=== PATIENT | female | born 1930 | race Caucasian/White ===

== ENCOUNTER 2020-10-19 12:38 | Observation (INO) | payer MEDICARE, OTHER ==
--- NOTE | 2020-10-19 13:07 | XRAY ---
Indication: Chest pain. Portable chest hyperinflated and clear. Heart borderline enlarged. Large hiatal hernia with partial intrathoracic stomach. Bony thorax demonstrates osteopenia, multilevel degenerative spondylosis, and moderate dextrorotoscoliosis.
[2020-10-19 13:26] LABS: Absolute Neutrophil Ct (ANC) 8.21 (1.4-6.9); BASOPHIL % 0.2 % (0.0-0.4); Basophil (Absolute #) 0.02 (0-0.4); Eosinophil % 0.1 % (0.00-5.0); Eosinophil (Absolute #) 0.01 (0-0.5); Hematocrit 40.3 % (35-47); Hemoglobin 13.2 gm/dl (12.0-16.0); Lymphocyte (Absolute #) 0.38 (1.0-4.6); Lymphocytes % 4.1 % (24.0-44.0); Mean Cell Volume 99.5 fl (78-100); Mean Corpuscular Hemoglobin 32.6 pg (26-32); Mean Corpuscular Hgb Concent. 32.8 g/dl (32-36); Mean Platelet Volume 8.7 fl (7.5-11.0); Monocyte (Absolute #) 0.76 (0.0-1.3); Monocytes % 8.1 % (0.0-12.0); Neutrophil % 87.5 % (36.0-66.0); Platelet Count 382 K/mm3 (150-450); Red Blood Count 4.05 M/mm3 (4.1-5.4); Red Cell Distribution Width 13.7 % (11.5-14.0); White Blood Count 9.4 K/mm3 (4.0-10.5)
[2020-10-19 13:40] LABS: ALBUMIN 3.5 g/dL (3.5-5.0); ALKALINE PHOSPHATASE 70 U/L (38-126); ANION GAP 11.6 MEQ/L (5-15); BLOOD UREA NITROGEN 17 mg/dL (7-17); CHLORIDE 101 mmol/L (98-107); Carbon Dioxide 27 mmol/L (22-30); Creatinine 1 0.62 mg/dL (0.52-1.04); EST GLOMERULAR FILTRATION RATE > 60.0 ML/MIN; Glucose 121 mg/dL (74-106); MAGNESIUM 1.9 mg/dL (1.6-2.3); NT PRO BNP 116 pg/mL (0-1800); Potassium 4.1 mmol/L (3.5-5.1); SGOT/AST 17 U/L (14-36); SODIUM 136 mmol/L (137-145); Total Protein 6.5 g/dL (6.3-8.2)
[2020-10-19 13:46] LABS: SGPT/ALT < 4 U/L (0-35)
[2020-10-19 14:25] LABS: Slide Review 1 YES
[2020-10-19 15:12] LABS: Appearance CLEAR (CLEAR); Bilirubin NEGATIVE (NEGATIVE); Blood SMALL Ery/ul (0-5); Glucose NEGATIVE (NEGATIVE); Ketones SMALL (NEGATIVE); Leukocyte Esterase NEGATIVE (NEGATIVE); Nitrite NEGATIVE (NEGATIVE); Protein,Urine Dip NEGATIVE (Negative); Specific Gravity 1.023 (1.005-1.025); Urobilinogen NEGATIVE mg/dL (0-1); WBC 0-2 /HPF (0-5)
--- NOTE | 2020-10-19 15:44 | ERPHSYRPT ---
- History of Present Illness Time Seen by Provider: 10/19/20 12:45 Historian: patient Exam Limitations: no limitations Patient Subjective Stated Complaint: "My chest hurts." Triage Nursing Assessment: Patient reported right sided neck pain onset friday that has since traveled to the right chest. Pain is reported at 10/10 and described as sharp. Denied known injuries. Denied alleviating/aggravating factors. Reported history of right breast cancer and right mastectomy. Patient appears cachectic. symmetrical chest expansion. heart tones S1/S2 tachycardic with regular rate. Lungs vessicular with adequate airflow and without adventitious sounds. Abdomen soft non-tedner. Peripheral pulses +3 bilateral. No noted dependent edema. Physician History: Patient is a 89-year-old female presents to our emergency department for evaluation of right-sided chest pain. Patient advised that she has a history of breast cancer. Patient chest pain started today. Pain described as a sharp sensation that radiates to her neck. No associated nausea or vomiting. No diaphoresis. Symptoms are moderate in intensity. No specific worsening or improving factors. Patient voices no other complaints or concerns at this time. Timing/Duration: today Activities at Onset: none Quality: sharpness Location: substernal Chest Pain Radiation: no radiation Severity of Pain-Max: moderate Severity of Pain-Current: mild Modifying Factors: Improves With: nothing Associated Symptoms: denies symptoms Prior Chest Pain/Cardiac Workup: no prior chest pain Nitro Today/Relief: no nitro taken today Aspirin Treatment Today: no aspirin today Allergies/Adverse Reactions: Penicillins Allergy (Verified 10/19/20 12:43) Sulfa (Sulfonamide Antibiotics) Allergy (Verified 10/19/20 12:43) Home Medications: Carbidopa/Levodopa [Carbidopa-Levo 25-100 Tab] 1 tab PO 5XD 10/19/20 [History] Quetiapine Fumarate 25 mg [Seroquel 25 MG] 1 tab PO HS 10/19/20 [History] Ropinirole 2Mg [Requip 2Mg Tab] 0.5 tab PO TID 10/19/20 [History] Tramadol HCl 50 mg [Ultram 50 mg] 1 tab PO Q6HPRN PRN 10/19/20 [History] Hx Tetanus, Diphtheria Vaccination/Date Given: Yes Hx Influenza Vaccination/Date Given: No Hx Pneumococcal Vaccination/Date Given: Yes Travel Risk - International Travel Have you traveled outside of the country in past 3 weeks: No - Coronavirus Screening Are you exhibiting any of the following symptoms?: No Close contact with a COVID-19 positive Pt in past 14-21 Days: No - Vaccine Status Have you recieved a Covid-19 vaccination: No - Review of Systems Constitutional: No Symptoms, No Fever, No Chills Eyes: No Symptoms Ears, Nose, & Throat: No Symptoms Respiratory: No Symptoms, No Cough, No Dyspnea Cardiac: No Symptoms, No Chest Pain, No Edema, No Syncope Abdominal/Gastrointestinal: No Symptoms, No Abdominal Pain, No Nausea, No Vomiting, No Diarrhea Genitourinary Symptoms: No Symptoms, No Dysuria Musculoskeletal: No Symptoms, No Back Pain, No Neck Pain Skin: No Symptoms, No Rash Neurological: No Symptoms, No Dizziness, No Focal Weakness, No Sensory Changes Psychological: No Symptoms Endocrine: No Symptoms Hematologic/Lymphatic: No Symptoms Immunological/Allergic: No Symptoms All Other Systems: Reviewed and Negative - Past Medical History Pertinent Past Medical History: Yes Neurological History: Other Female Reproductive Disorders: Breast Cancer Other Medical History: Parkinson's disease - Past Surgical History Past Surgical History: Yes Gastrointestinal: Cholecystectomy Female Surgical History: Tubal Ligation Other Surgical History: right mastectomy - Social History Smoking Status: Never smoker Exposure to second hand smoke: No Drug Use: none Patient Lives Alone: No - Nursing Vital Signs Nursing Vital Signs: Initial Vital Signs Pulse Rate 114 H 10/19/20 12:38 Respiratory Rate 24 10/19/20 12:38 O2 Sat by Pulse Oximetry 96 10/19/20 12:38 Pain Scale Pain Intensity 2 - Physical Exam General Appearance: no apparent distress, alert, thin, other (Patient is cachectic appearing) Eye Exam: PERRL/EOMI, eyes nml inspection Ears, Nose, Throat Exam: normal ENT inspection, moist mucous membranes Neck Exam: normal inspection, non-tender, supple, full range of motion Respiratory Exam: normal breath sounds, lungs clear, No respiratory distress Cardiovascular Exam: regular rate/rhythm, normal heart sounds Gastrointestinal/Abdomen Exam: soft, No tenderness, No mass Back Exam: normal inspection, No CVA tenderness, No vertebral tenderness Extremity Exam: normal inspection, normal range of motion Neurologic Exam: alert, oriented x 3, cooperative, normal mood/affect, sensation nml, No motor deficits Skin Exam: normal color, warm, dry Lymphatic Exam: No adenopathy SpO2 Interpretation: normal SpO2: 97 O2 Delivery: Room Air - Course Nursing assessment & vital signs reviewed: Yes EKG Interpreted by Me: RATE (112), Sinus Tach, NORMAL AXIS, NORMAL INTERVALS - Radiology Exams Chest X-ray Interpretation: Teleradiologist Report (Hyperinflated and clear lungs. Borderline cardiomegaly. Large hiatal hernia with partial intrathoracic stoma ch. Bony thorax demonstrates osteopenia multilevel degenerative spondylosis and moderate dextroscoliosis) - CT Exams Chest CT Interpretation: Tele-radiologist Report (Negative pulmonary embolus. No acute cardiopulmonary abnormalities. Pulmonary emphysema and scattered atelectasis/scarring, borderline cardiomegaly hiatal hernia with partial intrathoracic stomach, chronic bony findings and old granulomatous disease) Ordered Tests: Active Orders 24 hr Category Date Time Status Scene Painter STAT Care 10/19/20 12:48 Active EKG-ER Only STAT Care 10/19/20 12:47 Active IV Insertion STAT Care 10/19/20 12:47 Active Pulse Oximetry (ED) STAT Care 10/19/20 12:47 Active CHEST 1 VIEW (PORTABLE) Stat Exams 10/19/20 12:48 Completed CHEST WITH CONTRAST [CT] Stat Exams 10/19/20 15:43 Completed BLOOD CULTURE Stat Lab 10/19/20 13:10 Received CBC W DIFF Stat Lab 10/19/20 13:05 Completed CMP Stat Lab 10/19/20 13:05 Completed MAGNESIUM Stat Lab 10/19/20 13:05 Completed NT PRO BNP Stat Lab 10/19/20 13:05 Completed TROPONIN Q3H Lab 10/19/20 13:05 Completed TROPONIN Q3H Lab 10/19/20 15:40 Completed TROPONIN Q3H Lab 10/19/20 19:10 Completed TROPONIN Q3H Lab 10/19/20 22:00 Ordered TROPONIN Q3H Lab 10/20/20 01:00 Ordered UA W/RFX UR CULTURE Stat Lab 10/19/20 12:48 Completed Transfer Order Routine Transfer 10/19/20 Ordered Medication Summary Discontinued Medications Generic Name Dose Route Start Last Admin Trade Name Freq PRN Reason Stop Dose Admin Aspirin 324 mg 10/19/20 20:22 Baby Aspirin 81 Mg Chew PO 10/19/20 20:23 STAT ONE Morphine Sulfate 2 mg 10/19/20 15:51 10/19/20 16:04 Morphine Sulfate 2 Mg Inj IV 10/19/20 15:52 2 mg STAT ONE Administration Morphine Sulfate Confirm 10/19/20 16:02 Morphine Sulfate 2 Mg Inj Administered 10/19/20 16:03 Dose 2 mg .ROUTE .STK-MED ONE Nitroglycerin 1 gm 10/19/20 20:23 Nitro-Bid 2% Ud Packets TOP 10/19/20 20:24 STAT ONE Lab/Rad Data: Laboratory Result Diagrams 10/19/20 13:05 10/19/20 13:05 Laboratory Results 10/19/20 10/19/20 10/19/20 Range/Units 19:10 18:45 15:40 WBC (4.0-10.5) K/mm3 RBC (4.1-5.4) M/mm3 Hgb (12.0-16.0) gm/dl Hct (35-47) % MCV (78-100) fl MCH (26-32) pg MCHC (32-36) g/dl RDW (11.5-14.0) % Plt Count (150-450) K/mm3 MPV (7.5-11.0) fl Gran % (36.0-66.0) % Eos # (Auto) (0-0.5) Absolute Lymphs (auto) (1.0-4.6) Absolute Monos (auto) (0.0-1.3) Lymphocytes % (24.0-44.0) % Monocytes % (0.0-12.0) % Eosinophils % (0.00-5.0) % Basophils % (0.0-0.4) % Absolute Granulocytes (1.4-6.9) Basophils # (0-0.4) Sodium (137-145) mmol/L Potassium (3.5-5.1) mmol/L Chloride (98-107) mmol/L Carbon Dioxide (22-30) mmol/L Anion Gap (5-15) MEQ/L BUN (7-17) mg/dL Creatinine (0.52-1.04) mg/dL Estimated GFR ML/MIN Glucose (74-106) mg/dL Calcium (8.4-10.2) mg/dL Magnesium (1.6-2.3) mg/dL Total Bilirubin (0.2-1.3) mg/dL AST (14-36) U/L ALT (0-35) U/L Alkaline Phosphatase (38-126) U/L Troponin I < 0.012 < 0.012 (0.000-0.034) ng/mL NT-Pro-B Natriuret Pep (0-1800) pg/mL Serum Total Protein (6.3-8.2) g/dL Albumin (3.5-5.0) g/dL Urine Color (YELLOW) Urine Appearance (CLEAR) Urine pH (5-6) Ur Specific [place] (1.005-1.025) Urine Protein (Negative) Urine Ketones (NEGATIVE) Urine Blood (0-5) Luis/ul Urine Nitrite (NEGATIVE) Urine Bilirubin (NEGATIVE) Urine Urobilinogen (0-1) mg/dL Ur Leukocyte Esterase (NEGATIVE) Urine WBC (Auto) (0-5) /HPF Urine RBC (Auto) (0-2) /HPF U Epithel Cells (Auto) (FEW) /HPF Urine Bacteria (Auto) (NEGATIVE) /HPF Urine Culture Reflexed (NO) Urine Glucose (NEGATIVE) mg/dL Influenza Type A Ag NEGATIVE (NEGATIVE) Influenza Type B Ag NEGATIVE (NEGATIVE) RSV (PCR) NEGATIVE (Negative) SARS-CoV-2 (PCR) NEGATIVE (NEGATIVE) Slides for Path Review 10/19/20 10/19/20 10/19/20 Range/Units 13:05 13:05 13:05 WBC 9.4 (4.0-10.5) K/mm3 RBC 4.05 L (4.1-5.4) M/mm3 Hgb 13.2 (12.0-16.0) gm/dl Hct 40.3 (35-47) % MCV 99.5 (78-100) fl MCH 32.6 H (26-32) pg MCHC 32.8 (32-36) g/dl RDW 13.7 (11.5-14.0) % Plt Count 382 (150-450) K/mm3 MPV 8.7 (7.5-11.0) fl Gran % 87.5 H (36.0-66.0) % Eos # (Auto) 0.01 (0-0.5) Absolute Lymphs (auto) 0.38 L (1.0-4.6) Absolute Monos (auto) 0.76 (0.0-1.3) Lymphocytes % 4.1 L (24.0-44.0) % Monocytes % 8.1 (0.0-12.0) % Eosinophils % 0.1 (0.00-5.0) % Basophils % 0.2 (0.0-0.4) % Absolute Granulocytes 8.21 H (1.4-6.9) Basophils # 0.02 (0-0.4) Sodium 136 L (137-145) mmol/L Potassium 4.1 (3.5-5.1) mmol/L Chloride 101 (98-107) mmol/L Carbon Dioxide 27 (22-30) mmol/L Anion Gap 11.6 (5-15) MEQ/L BUN 17 (7-17) mg/dL Creatinine 0.62 (0.52-1.04) mg/dL Estimated GFR > 60.0 ML/MIN Glucose 121 H (74-106) mg/dL Calcium 9.0 (8.4-10.2) mg/dL Magnesium 1.9 (1.6-2.3) mg/dL Total Bilirubin 0.80 (0.2-1.3) mg/dL AST 17 (14-36) U/L ALT < 4 (0-35) U/L Alkaline Phosphatase 70 (38-126) U/L Troponin I < 0.012 (0.000-0.034) ng/mL NT-Pro-B Natriuret Pep 116 (0-1800) pg/mL Serum Total Protein 6.5 (6.3-8.2) g/dL Albumin 3.5 (3.5-5.0) g/dL Urine Color (YELLOW) Urine Appearance (CLEAR) Urine pH (5-6) Ur Specific [place] (1.005-1.025) Urine Protein (Negative) Urine Ketones (NEGATIVE) Urine Blood (0-5) Luis/ul Urine Nitrite (NEGATIVE) Urine Bilirubin (NEGATIVE) Urine Urobilinogen (0-1) mg/dL Ur Leukocyte Esterase (NEGATIVE) Urine WBC (Auto) (0-5) /HPF Urine RBC (Auto) (0-2) /HPF U Epithel Cells (Auto) (FEW) /HPF Urine Bacteria (Auto) (NEGATIVE) /HPF Urine Culture Reflexed (NO) Urine Glucose (NEGATIVE) mg/dL Influenza Type A Ag (NEGATIVE) Influenza Type B Ag (NEGATIVE) RSV (PCR) (Negative) SARS-CoV-2 (PCR) (NEGATIVE) Slides for Path Review YES 10/19/20 Range/Units 12:48 WBC (4.0-10.5) K/mm3 RBC (4.1-5.4) M/mm3 Hgb (12.0-16.0) gm/dl Hct (35-47) % MCV (78-100) fl MCH (26-32) pg MCHC (32-36) g/dl RDW (11.5-14.0) % Plt Count (150-450) K/mm3 MPV (7.5-11.0) fl Gran % (36.0-66.0) % Eos # (Auto) (0-0.5) Absolute Lymphs (auto) (1.0-4.6) Absolute Monos (auto) (0.0-1.3) Lymphocytes % (24.0-44.0) % Monocytes % (0.0-12.0) % Eosinophils % (0.00-5.0) % Basophils % (0.0-0.4) % Absolute Granulocytes (1.4-6.9) Basophils # (0-0.4) Sodium (137-145) mmol/L Potassium (3.5-5.1) mmol/L Chloride (98-107) mmol/L Carbon Dioxide (22-30) mmol/L Anion Gap (5-15) MEQ/L BUN (7-17) mg/dL Creatinine (0.52-1.04) mg/dL Estimated GFR ML/MIN Glucose (74-106) mg/dL Calcium (8.4-10.2) mg/dL Magnesium (1.6-2.3) mg/dL Total Bilirubin (0.2-1.3) mg/dL AST (14-36) U/L ALT (0-35) U/L Alkaline Phosphatase (38-126) U/L Troponin I (0.000-0.034) ng/mL NT-Pro-B Natriuret Pep (0-1800) pg/mL Serum Total Protein (6.3-8.2) g/dL Albumin (3.5-5.0) g/dL Urine Color YELLOW (YELLOW) Urine Appearance CLEAR (CLEAR) Urine pH 5.0 (5-6) Ur Specific [place] 1.023 (1.005-1.025) Urine Protein NEGATIVE (Negative) Urine Ketones SMALL (NEGATIVE) Urine Blood SMALL (0-5) Luis/ul Urine Nitrite NEGATIVE (NEGATIVE) Urine Bilirubin NEGATIVE (NEGATIVE) Urine Urobilinogen NEGATIVE (0-1) mg/dL Ur Leukocyte Esterase NEGATIVE (NEGATIVE) Urine WBC (Auto) 0-2 (0-5) /HPF Urine RBC (Auto) 3-5 (0-2) /HPF U Epithel Cells (Auto) NONE (FEW) /HPF Urine Bacteria (Auto) NONE (NEGATIVE) /HPF Urine Culture Reflexed NO (NO) Urine Glucose NEGATIVE (NEGATIVE) mg/dL Influenza Type A Ag (NEGATIVE) Influenza Type B Ag (NEGATIVE) RSV (PCR) (Negative) SARS-CoV-2 (PCR) (NEGATIVE) Slides for Path Review - Progress Progress: improved Air Movement: good Progress Note: 10/19/20 20:26 Patient is an 89-year-old female presents with chest pain. CTA chest negative. Troponin negative x2. We will admit for cardiac rule out. Case cussed Dr. Patel who accepts admission to observation. Plan of care discussed with patient. She agrees to admission [facility] for further evaluation and treatment. Blood Culture(s) Obtained: No Antibiotics given: No Counseled pt/family regarding: lab results, diagnosis, rad results - Departure Departure Disposition: Home Clinical Impression: Chest pain, Hiatal hernia, Osteopenia, Spondylosis, Dextroscoliosis, Cardiomegaly, Pulmonary emphysema, Granulomatous disease, chronic, Degenerative arthritis, Acute coronary syndrome Condition: Stable Critical Care Time: No Referrals: YULI SEWELL NP [Primary Care Provider] - Instructions: Chronic Obstructive Pulmonary Disease
[2020-10-19] MEDS ORDERED: MORPHINE SULFATE 2 MG INJ IV ONE (15:51)
[2020-10-19] MEDS ORDERED: MORPHINE SULFATE 2 MG INJ ONE (16:02)
--- NOTE | 2020-10-19 17:06 | XRAY ---
Indication: Pulmonary embolus. Multiple contiguous axial images obtained through the chest using 80 cc Isovue 370 contrast and PE protocol. Comparison: None There is good opacification of the pulmonary arteries to include the lobar and segmental branches. No pulmonary embolus. Heart is borderline enlarged. Aorta is mildly arteriosclerotic without aneurysm/dissection. Tiny mediastinal and hilar calcified nodes. No pathologic mediastinal/hilar lymphadenopathy. Large hiatal hernia with partial intrathoracic stomach. Lungs demonstrates mild pulmonary emphysema with mild bibasilar subsegmental atelectasis/scarring, left greater than right. No suspicious pulmonary mass, infiltrate, or effusion. Bony thorax demonstrates osteopenia, minimal degenerative changes throughout the spine, accentuated thoracic kyphosis, and mild dextroscoliosis. Limited upper abdomen demonstrates hepatic/splenic calcified granulomas. Impression: 1. Negative pulmonary embolus. No acute cardiopulmonary abnormalities. 2. Pulmonary emphysema with scattered atelectasis/scarring, borderline cardiomegaly, hiatal hernia with partial intrathoracic stomach, chronic bony findings, and old granulomatous disease.
[2020-10-19 19:52] LABS: INFLUENZA A NEGATIVE (NEGATIVE); INFLUENZA B NEGATIVE (NEGATIVE); RESPIRATORY SYNCTIAL VIRUS NEGATIVE (Negative)
[2020-10-19] MEDS ORDERED: BABY ASPIRIN 81 MG CHEW PO ONE (20:22)
[2020-10-19] MEDS ORDERED: NITRO-BID 2% UD PACKETS TOP ONE (20:23)
[2020-10-19] MEDS ORDERED: NITRO-BID 2% UD PACKETS ONE (20:26)
[2020-10-19] MEDS ORDERED: BABY ASPIRIN 81 MG CHEW ONE (20:26)
[2020-10-19] MEDS ORDERED: MILK OF MAGNESIA 30 ML PO PRN (21:02)
[2020-10-19] MEDS ORDERED: Senokot-S Tablet PO PRN (21:02)
[2020-10-19] MEDS ORDERED: MAALOX ES 30 ML UNIT DOSE PO PRN (21:02)
[2020-10-19] MEDS ORDERED: TYLENOL 325 MG PO PRN (21:02)
[2020-10-19] MEDS ORDERED: Zofran 4 MG/2 ML VIAL IV PRN (21:02)
[2020-10-19] MEDS ORDERED: Seroquel 25 MG PO SCH (22:00)
[2020-10-19] MEDS ORDERED: ULTRAM 50 MG PO PRN (22:42)
[2020-10-19] MEDS: REQUIP 2MG TAB PO SCH (22:57)
[2020-10-19] MEDS: Sinemet 25/100 MG PO SCH (22:58)
[2020-10-20] MEDS: Sinemet 25/100 MG PO SCH ×2 (02:00→06:42)
[2020-10-20 06:43] LABS: Risk Ratio 2.6
[2020-10-20 08:28] VITALS: BP 112/57; PULSE 96; O2SAT 97
--- NOTE | 2020-10-20 09:31 | PCM.SSS ---
History of Present Illness - Chief Complaint Chief Complaint: ACS Date: 10/20/20 History of Present Illness: is a 89 year old female. Pt. noted right chest pain where her boob had previously been, she notes pain resolved after MOrphine was given in ER. - Review of Systems Constitutional: No Fever, No Chills Eyes: No Symptoms Ears, Nose, & Throat: No Symptoms Respiratory: No Cough, No Short Of Breath Cardiac: Chest Pain Abdominal/Gastrointestinal: No Abdominal Pain, No Nausea, No Vomiting, No Diarrhea Genitourinary Symptoms: No Dysuria Musculoskeletal: No Back Pain, No Neck Pain Skin: No Rash Neurological: No Dizziness, No Focal Weakness, No Sensory Changes Psychological: No Symptoms Endocrine: No Symptoms Hematologic/Lymphatic: No Symptoms Immunological/Allergic: No Symptoms Medications & Allergies Home Medications: Home Medication List Carbidopa/Levodopa [Carbidopa-Levo 25-100 Tab] 1 tab PO 5XD 10/19/20 [History Confirmed 10/19/20] Quetiapine Fumarate 25 mg [Seroquel 25 MG] 1 tab PO HS 10/19/20 [History Confirmed 10/19/20] Ropinirole 2Mg [Requip 2Mg Tab] 0.5 tab PO TID 10/19/20 [History Confirmed 10/19/20] Tramadol HCl 50 mg [Ultram 50 mg] 1 tab PO Q6HPRN PRN 10/19/20 [History Confirmed 10/19/20] Allergies/Adverse Reactions: Allergies Allergy/AdvReac Type Severity Reaction Status Date / Time Penicillins Allergy Verified 10/19/20 21:20 Sulfa (Sulfonamide Allergy Verified 10/19/20 21:20 Antibiotics) - Past Medical History Past Medical History: Yes Neurological History: Other ENT History: Cataracts Cardiac History: No Pertinent History Respiratory History: No Pertinent History Endocrine Medical History: No Pertinent History Musculoskelatal History: No Pertinent History GI Medical History: No Pertinent History Pyscho-Social History: No Pertinent History Reproductive Disorders: Breast Cancer Comment: Parkinson's disease, 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 no other history reported by pt, poor historian - Social History Smoking Status: Former smoker Exposure to second hand smoke: No Alcohol: None Drug Use: none - Physical Exam Vital Signs: Vital Signs - 24 hr Temp Pulse Resp BP Pulse Ox 10/20/20 08:00 98.6 F 96 H 14 112/57 97 10/20/20 04:15 98.8 F 101 H 17 121/56 96 10/20/20 00:00 98.7 F 96 H 18 119/65 95 10/19/20 23:09 98.9 F 103 H 17 144/65 94 L 10/19/20 22:05 95 10/19/20 20:28 97 10/19/20 19:00 103 H 16 135/62 96 10/19/20 18:28 114 H 20 125/68 98 10/19/20 17:00 113 H 22 125/68 95 10/19/20 16:00 110 H 18 125/68 95 10/19/20 14:38 117 H 24 127/54 97 10/19/20 12:58 96 10/19/20 12:38 114 H 24 96 General Appearance: no apparent distress, alert Neurologic Exam: alert, oriented x 3, cooperative, normal mood/affect, nml cerebellar function, nml station & gait, sensation nml, No motor deficits Eye Exam: PERRL/EOMI, eyes nml inspection Ears, Nose, Throat Exam: normal ENT inspection, TMs normal, pharynx normal, moist mucous membranes Neck Exam: normal inspection, non-tender, supple, full range of motion Respiratory Exam: normal breath sounds, lungs clear, No respiratory distress Cardiovascular Exam: regular rate/rhythm, normal heart sounds, normal peripheral pulses Gastrointestinal/Abdomen Exam: soft, normal bowel sounds, No tenderness, No mass Back Exam: normal inspection, normal range of motion, No CVA tenderness, No vertebral tenderness Extremity Exam: normal inspection, normal range of motion, pelvis stable Skin Exam: normal color, warm, dry, No rash Lymphatic Exam: No adenopathy Results - Labs Lab/Micro Results: Lab Results-Last 24 Hours 10/19/20 10/19/20 10/19/20 Range/Units 12:48 13:05 13:05 WBC 9.4 (4.0-10.5) K/mm3 RBC 4.05 L (4.1-5.4) M/mm3 Hgb 13.2 (12.0-16.0) gm/dl Hct 40.3 (35-47) % MCV 99.5 (78-100) fl MCH 32.6 H (26-32) pg MCHC 32.8 (32-36) g/dl RDW 13.7 (11.5-14.0) % Plt Count 382 (150-450) K/mm3 MPV 8.7 (7.5-11.0) fl Gran % 87.5 H (36.0-66.0) % Eos # (Auto) 0.01 (0-0.5) Absolute Lymphs (auto) 0.38 L (1.0-4.6) Absolute Monos (auto) 0.76 (0.0-1.3) Lymphocytes % 4.1 L (24.0-44.0) % Monocytes % 8.1 (0.0-12.0) % Eosinophils % 0.1 (0.00-5.0) % Basophils % 0.2 (0.0-0.4) % Absolute Granulocytes 8.21 H (1.4-6.9) Basophils # 0.02 (0-0.4) Sodium 136 L (137-145) mmol/L Potassium 4.1 (3.5-5.1) mmol/L Chloride 101 (98-107) mmol/L Carbon Dioxide 27 (22-30) mmol/L Anion Gap 11.6 (5-15) MEQ/L BUN 17 (7-17) mg/dL Creatinine 0.62 (0.52-1.04) mg/dL Estimated GFR > 60.0 ML/MIN Glucose 121 H (74-106) mg/dL Calcium 9.0 (8.4-10.2) mg/dL Magnesium 1.9 (1.6-2.3) mg/dL Total Bilirubin 0.80 (0.2-1.3) mg/dL AST 17 (14-36) U/L ALT < 4 (0-35) U/L Alkaline Phosphatase 70 (38-126) U/L Troponin I (0.000-0.034) ng/mL NT-Pro-B Natriuret Pep 116 (0-1800) pg/mL Serum Total Protein 6.5 (6.3-8.2) g/dL Albumin 3.5 (3.5-5.0) g/dL Triglycerides (30-150) mg/dL Cholesterol (50-200) mg/dL LDL Cholesterol (30-100) mg/dL HDL Cholesterol (40-60) mg/dL Heart Disease Risk Ratio Urine Color YELLOW (YELLOW) Urine Appearance CLEAR (CLEAR) Urine pH 5.0 (5-6) Ur Specific [place] 1.023 (1.005-1.025) Urine Protein NEGATIVE (Negative) Urine Ketones SMALL (NEGATIVE) Urine Blood SMALL (0-5) Luis/ul Urine Nitrite NEGATIVE (NEGATIVE) Urine Bilirubin NEGATIVE (NEGATIVE) Urine Urobilinogen NEGATIVE (0-1) mg/dL Ur Leukocyte Esterase NEGATIVE (NEGATIVE) Urine WBC (Auto) 0-2 (0-5) /HPF Urine RBC (Auto) 3-5 (0-2) /HPF U Epithel Cells (Auto) NONE (FEW) /HPF Urine Bacteria (Auto) NONE (NEGATIVE) /HPF Urine Culture Reflexed NO (NO) Urine Glucose NEGATIVE (NEGATIVE) mg/dL Influenza Type A Ag (NEGATIVE) Influenza Type B Ag (NEGATIVE) RSV (PCR) (Negative) SARS-CoV-2 (PCR) (NEGATIVE) Slides for Path Review YES 10/19/20 10/19/20 10/19/20 Range/Units 13:05 15:40 18:45 WBC (4.0-10.5) K/mm3 RBC (4.1-5.4) M/mm3 Hgb (12.0-16.0) gm/dl Hct (35-47) % MCV (78-100) fl MCH (26-32) pg MCHC (32-36) g/dl RDW (11.5-14.0) % Plt Count (150-450) K/mm3 MPV (7.5-11.0) fl Gran % (36.0-66.0) % Eos # (Auto) (0-0.5) Absolute Lymphs (auto) (1.0-4.6) Absolute Monos (auto) (0.0-1.3) Lymphocytes % (24.0-44.0) % Monocytes % (0.0-12.0) % Eosinophils % (0.00-5.0) % Basophils % (0.0-0.4) % Absolute Granulocytes (1.4-6.9) Basophils # (0-0.4) Sodium (137-145) mmol/L Potassium (3.5-5.1) mmol/L Chloride (98-107) mmol/L Carbon Dioxide (22-30) mmol/L Anion Gap (5-15) MEQ/L BUN (7-17) mg/dL Creatinine (0.52-1.04) mg/dL Estimated GFR ML/MIN Glucose (74-106) mg/dL Calcium (8.4-10.2) mg/dL Magnesium (1.6-2.3) mg/dL Total Bilirubin (0.2-1.3) mg/dL AST (14-36) U/L ALT (0-35) U/L Alkaline Phosphatase (38-126) U/L Troponin I < 0.012 < 0.012 (0.000-0.034) ng/mL NT-Pro-B Natriuret Pep (0-1800) pg/mL Serum Total Protein (6.3-8.2) g/dL Albumin (3.5-5.0) g/dL Triglycerides (30-150) mg/dL Cholesterol (50-200) mg/dL LDL Cholesterol (30-100) mg/dL HDL Cholesterol (40-60) mg/dL Heart Disease Risk Ratio Urine Color (YELLOW) Urine Appearance (CLEAR) Urine pH (5-6) Ur Specific [place] (1.005-1.025) Urine Protein (Negative) Urine Ketones (NEGATIVE) Urine Blood (0-5) Luis/ul Urine Nitrite (NEGATIVE) Urine Bilirubin (NEGATIVE) Urine Urobilinogen (0-1) mg/dL Ur Leukocyte Esterase (NEGATIVE) Urine WBC (Auto) (0-5) /HPF Urine RBC (Auto) (0-2) /HPF U Epithel Cells (Auto) (FEW) /HPF Urine Bacteria (Auto) (NEGATIVE) /HPF Urine Culture Reflexed (NO) Urine Glucose (NEGATIVE) mg/dL Influenza Type A Ag NEGATIVE (NEGATIVE) Influenza Type B Ag NEGATIVE (NEGATIVE) RSV (PCR) NEGATIVE (Negative) SARS-CoV-2 (PCR) NEGATIVE (NEGATIVE) Slides for Path Review 10/19/20 10/19/20 10/20/20 Range/Units 19:10 22:00 00:50 WBC (4.0-10.5) K/mm3 RBC (4.1-5.4) M/mm3 Hgb (12.0-16.0) gm/dl Hct (35-47) % MCV (78-100) fl MCH (26-32) pg MCHC (32-36) g/dl RDW (11.5-14.0) % Plt Count (150-450) K/mm3 MPV (7.5-11.0) fl Gran % (36.0-66.0) % Eos # (Auto) (0-0.5) Absolute Lymphs (auto) (1.0-4.6) Absolute Monos (auto) (0.0-1.3) Lymphocytes % (24.0-44.0) % Monocytes % (0.0-12.0) % Eosinophils % (0.00-5.0) % Basophils % (0.0-0.4) % Absolute Granulocytes (1.4-6.9) Basophils # (0-0.4) Sodium (137-145) mmol/L Potassium (3.5-5.1) mmol/L Chloride (98-107) mmol/L Carbon Dioxide (22-30) mmol/L Anion Gap (5-15) MEQ/L BUN (7-17) mg/dL Creatinine (0.52-1.04) mg/dL Estimated GFR ML/MIN Glucose (74-106) mg/dL Calcium (8.4-10.2) mg/dL Magnesium (1.6-2.3) mg/dL Total Bilirubin (0.2-1.3) mg/dL AST (14-36) U/L ALT (0-35) U/L Alkaline Phosphatase (38-126) U/L Troponin I < 0.012 < 0.012 < 0.012 (0.000-0.034) ng/mL NT-Pro-B Natriuret Pep (0-1800) pg/mL Serum Total Protein (6.3-8.2) g/dL Albumin (3.5-5.0) g/dL Triglycerides (30-150) mg/dL Cholesterol (50-200) mg/dL LDL Cholesterol (30-100) mg/dL HDL Cholesterol (40-60) mg/dL Heart Disease Risk Ratio Urine Color (YELLOW) Urine Appearance (CLEAR) Urine pH (5-6) Ur Specific [place] (1.005-1.025) Urine Protein (Negative) Urine Ketones (NEGATIVE) Urine Blood (0-5) Luis/ul Urine Nitrite (NEGATIVE) Urine Bilirubin (NEGATIVE) Urine Urobilinogen (0-1) mg/dL Ur Leukocyte Esterase (NEGATIVE) Urine WBC (Auto) (0-5) /HPF Urine RBC (Auto) (0-2) /HPF U Epithel Cells (Auto) (FEW) /HPF Urine Bacteria (Auto) (NEGATIVE) /HPF Urine Culture Reflexed (NO) Urine Glucose (NEGATIVE) mg/dL Influenza Type A Ag (NEGATIVE) Influenza Type B Ag (NEGATIVE) RSV (PCR) (Negative) SARS-CoV-2 (PCR) (NEGATIVE) Slides for Path Review 10/20/20 Range/Units 04:00 WBC (4.0-10.5) K/mm3 RBC (4.1-5.4) M/mm3 Hgb (12.0-16.0) gm/dl Hct (35-47) % MCV (78-100) fl MCH (26-32) pg MCHC (32-36) g/dl RDW (11.5-14.0) % Plt Count (150-450) K/mm3 MPV (7.5-11.0) fl Gran % (36.0-66.0) % Eos # (Auto) (0-0.5) Absolute Lymphs (auto) (1.0-4.6) Absolute Monos (auto) (0.0-1.3) Lymphocytes % (24.0-44.0) % Monocytes % (0.0-12.0) % Eosinophils % (0.00-5.0) % Basophils % (0.0-0.4) % Absolute Granulocytes (1.4-6.9) Basophils # (0-0.4) Sodium (137-145) mmol/L Potassium (3.5-5.1) mmol/L Chloride (98-107) mmol/L Carbon Dioxide (22-30) mmol/L Anion Gap (5-15) MEQ/L BUN (7-17) mg/dL Creatinine (0.52-1.04) mg/dL Estimated GFR ML/MIN Glucose (74-106) mg/dL Calcium (8.4-10.2) mg/dL Magnesium (1.6-2.3) mg/dL Total Bilirubin (0.2-1.3) mg/dL AST (14-36) U/L ALT (0-35) U/L Alkaline Phosphatase (38-126) U/L Troponin I (0.000-0.034) ng/mL NT-Pro-B Natriuret Pep (0-1800) pg/mL Serum Total Protein (6.3-8.2) g/dL Albumin (3.5-5.0) g/dL Triglycerides 64 (30-150) mg/dL Cholesterol 112 (50-200) mg/dL LDL Cholesterol 46 (30-100) mg/dL HDL Cholesterol 43 (40-60) mg/dL Heart Disease Risk Ratio 2.6 Urine Color (YELLOW) Urine Appearance (CLEAR) Urine pH (5-6) Ur Specific [place] (1.005-1.025) Urine Protein (Negative) Urine Ketones (NEGATIVE) Urine Blood (0-5) Luis/ul Urine Nitrite (NEGATIVE) Urine Bilirubin (NEGATIVE) Urine Urobilinogen (0-1) mg/dL Ur Leukocyte Esterase (NEGATIVE) Urine WBC (Auto) (0-5) /HPF Urine RBC (Auto) (0-2) /HPF U Epithel Cells (Auto) (FEW) /HPF Urine Bacteria (Auto) (NEGATIVE) /HPF Urine Culture Reflexed (NO) Urine Glucose (NEGATIVE) mg/dL Influenza Type A Ag (NEGATIVE) Influenza Type B Ag (NEGATIVE) RSV (PCR) (Negative) SARS-CoV-2 (PCR) (NEGATIVE) Slides for Path Review - Radiology Impressions Radiology Exams & Impressions: Radiology Procedures Category Date Time Status CHEST 1 VIEW (PORTABLE) Stat Exams 10/19/20 12:48 Completed CHEST WITH CONTRAST [CT] Stat Exams 10/19/20 15:43 Completed - Other Procedures and Tests Respiratory Therapy 10/21/20 05:00 EKG ROUTINE 10/22/20 05:00 EKG ROUTINE Assessment/Plan (1) Chest pain Current Visit: Yes Status: Acute Code(s): R07.9 - CHEST PAIN, UNSPECIFIED Hospital Summary - Hospital Course Hospital Course: Pt. notes no further chest pain/ tenderness after initial dose of morphine given in ER, she feels ready for d/c this am - Vitals & Intake/Output Vital Signs: Vital Signs Temperature 98.6 F 10/20/20 08:00 Pulse Rate 96 H 10/20/20 08:00 Respiratory Rate 14 10/20/20 08:00 Blood Pressure 112/57 10/20/20 08:00 O2 Sat by Pulse Oximetry 97 10/20/20 08:00 Intake & Output: Intake & Output 10/17/20 10/18/20 10/19/20 10/20/20 11:59 11:59 11:59 11:59 Intake Total 240 Output Total 10 Balance 230 Weight 41.4 kg - Lab Result Diagrams: 10/19/20 13:05 10/19/20 13:05 Lab Results-Last 24 Hrs: Lab Results-Last 24 Hours 10/19/20 10/19/20 10/19/20 Range/Units 12:48 13:05 13:05 WBC 9.4 (4.0-10.5) K/mm3 RBC 4.05 L (4.1-5.4) M/mm3 Hgb 13.2 (12.0-16.0) gm/dl Hct 40.3 (35-47) % MCV 99.5 (78-100) fl MCH 32.6 H (26-32) pg MCHC 32.8 (32-36) g/dl RDW 13.7 (11.5-14.0) % Plt Count 382 (150-450) K/mm3 MPV 8.7 (7.5-11.0) fl Gran % 87.5 H (36.0-66.0) % Eos # (Auto) 0.01 (0-0.5) Absolute Lymphs (auto) 0.38 L (1.0-4.6) Absolute Monos (auto) 0.76 (0.0-1.3) Lymphocytes % 4.1 L (24.0-44.0) % Monocytes % 8.1 (0.0-12.0) % Eosinophils % 0.1 (0.00-5.0) % Basophils % 0.2 (0.0-0.4) % Absolute Granulocytes 8.21 H (1.4-6.9) Basophils # 0.02 (0-0.4) Sodium 136 L (137-145) mmol/L Potassium 4.1 (3.5-5.1) mmol/L Chloride 101 (98-107) mmol/L Carbon Dioxide 27 (22-30) mmol/L Anion Gap 11.6 (5-15) MEQ/L BUN 17 (7-17) mg/dL Creatinine 0.62 (0.52-1.04) mg/dL Estimated GFR > 60.0 ML/MIN Glucose 121 H (74-106) mg/dL Calcium 9.0 (8.4-10.2) mg/dL Magnesium 1.9 (1.6-2.3) mg/dL Total Bilirubin 0.80 (0.2-1.3) mg/dL AST 17 (14-36) U/L ALT < 4 (0-35) U/L Alkaline Phosphatase 70 (38-126) U/L Troponin I (0.000-0.034) ng/mL NT-Pro-B Natriuret Pep 116 (0-1800) pg/mL Serum Total Protein 6.5 (6.3-8.2) g/dL Albumin 3.5 (3.5-5.0) g/dL Triglycerides (30-150) mg/dL Cholesterol (50-200) mg/dL LDL Cholesterol (30-100) mg/dL HDL Cholesterol (40-60) mg/dL Heart Disease Risk Ratio Urine Color YELLOW (YELLOW) Urine Appearance CLEAR (CLEAR) Urine pH 5.0 (5-6) Ur Specific [place] 1.023 (1.005-1.025) Urine Protein NEGATIVE (Negative) Urine Ketones SMALL (NEGATIVE) Urine Blood SMALL (0-5) Luis/ul Urine Nitrite NEGATIVE (NEGATIVE) Urine Bilirubin NEGATIVE (NEGATIVE) Urine Urobilinogen NEGATIVE (0-1) mg/dL Ur Leukocyte Esterase NEGATIVE (NEGATIVE) Urine WBC (Auto) 0-2 (0-5) /HPF Urine RBC (Auto) 3-5 (0-2) /HPF U Epithel Cells (Auto) NONE (FEW) /HPF Urine Bacteria (Auto) NONE (NEGATIVE) /HPF Urine Culture Reflexed NO (NO) Urine Glucose NEGATIVE (NEGATIVE) mg/dL Influenza Type A Ag (NEGATIVE) Influenza Type B Ag (NEGATIVE) RSV (PCR) (Negative) SARS-CoV-2 (PCR) (NEGATIVE) Slides for Path Review YES 10/19/20 10/19/20 10/19/20 Range/Units 13:05 15:40 18:45 WBC (4.0-10.5) K/mm3 RBC (4.1-5.4) M/mm3 Hgb (12.0-16.0) gm/dl Hct (35-47) % MCV (78-100) fl MCH (26-32) pg MCHC (32-36) g/dl RDW (11.5-14.0) % Plt Count (150-450) K/mm3 MPV (7.5-11.0) fl Gran % (36.0-66.0) % Eos # (Auto) (0-0.5) Absolute Lymphs (auto) (1.0-4.6) Absolute Monos (auto) (0.0-1.3) Lymphocytes % (24.0-44.0) % Monocytes % (0.0-12.0) % Eosinophils % (0.00-5.0) % Basophils % (0.0-0.4) % Absolute Granulocytes (1.4-6.9) Basophils # (0-0.4) Sodium (137-145) mmol/L Potassium (3.5-5.1) mmol/L Chloride (98-107) mmol/L Carbon Dioxide (22-30) mmol/L Anion Gap (5-15) MEQ/L BUN (7-17) mg/dL Creatinine (0.52-1.04) mg/dL Estimated GFR ML/MIN Glucose (74-106) mg/dL Calcium (8.4-10.2) mg/dL Magnesium (1.6-2.3) mg/dL Total Bilirubin (0.2-1.3) mg/dL AST (14-36) U/L ALT (0-35) U/L Alkaline Phosphatase (38-126) U/L Troponin I < 0.012 < 0.012 (0.000-0.034) ng/mL NT-Pro-B Natriuret Pep (0-1800) pg/mL Serum Total Protein (6.3-8.2) g/dL Albumin (3.5-5.0) g/dL Triglycerides (30-150) mg/dL Cholesterol (50-200) mg/dL LDL Cholesterol (30-100) mg/dL HDL Cholesterol (40-60) mg/dL Heart Disease Risk Ratio Urine Color (YELLOW) Urine Appearance (CLEAR) Urine pH (5-6) Ur Specific [place] (1.005-1.025) Urine Protein (Negative) Urine Ketones (NEGATIVE) Urine Blood (0-5) Luis/ul Urine Nitrite (NEGATIVE) Urine Bilirubin (NEGATIVE) Urine Urobilinogen (0-1) mg/dL Ur Leukocyte Esterase (NEGATIVE) Urine WBC (Auto) (0-5) /HPF Urine RBC (Auto) (0-2) /HPF U Epithel Cells (Auto) (FEW) /HPF Urine Bacteria (Auto) (NEGATIVE) /HPF Urine Culture Reflexed (NO) Urine Glucose (NEGATIVE) mg/dL Influenza Type A Ag NEGATIVE (NEGATIVE) Influenza Type B Ag NEGATIVE (NEGATIVE) RSV (PCR) NEGATIVE (Negative) SARS-CoV-2 (PCR) NEGATIVE (NEGATIVE) Slides for Path Review 10/19/20 10/19/20 10/20/20 Range/Units 19:10 22:00 00:50 WBC (4.0-10.5) K/mm3 RBC (4.1-5.4) M/mm3 Hgb (12.0-16.0) gm/dl Hct (35-47) % MCV (78-100) fl MCH (26-32) pg MCHC (32-36) g/dl RDW (11.5-14.0) % Plt Count (150-450) K/mm3 MPV (7.5-11.0) fl Gran % (36.0-66.0) % Eos # (Auto) (0-0.5) Absolute Lymphs (auto) (1.0-4.6) Absolute Monos (auto) (0.0-1.3) Lymphocytes % (24.0-44.0) % Monocytes % (0.0-12.0) % Eosinophils % (0.00-5.0) % Basophils % (0.0-0.4) % Absolute Granulocytes (1.4-6.9) Basophils # (0-0.4) Sodium (137-145) mmol/L Potassium (3.5-5.1) mmol/L Chloride (98-107) mmol/L Carbon Dioxide (22-30) mmol/L Anion Gap (5-15) MEQ/L BUN (7-17) mg/dL Creatinine (0.52-1.04) mg/dL Estimated GFR ML/MIN Glucose (74-106) mg/dL Calcium (8.4-10.2) mg/dL Magnesium (1.6-2.3) mg/dL Total Bilirubin (0.2-1.3) mg/dL AST (14-36) U/L ALT (0-35) U/L Alkaline Phosphatase (38-126) U/L Troponin I < 0.012 < 0.012 < 0.012 (0.000-0.034) ng/mL NT-Pro-B Natriuret Pep (0-1800) pg/mL Serum Total Protein (6.3-8.2) g/dL Albumin (3.5-5.0) g/dL Triglycerides (30-150) mg/dL Cholesterol (50-200) mg/dL LDL Cholesterol (30-100) mg/dL HDL Cholesterol (40-60) mg/dL Heart Disease Risk Ratio Urine Color (YELLOW) Urine Appearance (CLEAR) Urine pH (5-6) Ur Specific [place] (1.005-1.025) Urine Protein (Negative) Urine Ketones (NEGATIVE) Urine Blood (0-5) Luis/ul Urine Nitrite (NEGATIVE) Urine Bilirubin (NEGATIVE) Urine Urobilinogen (0-1) mg/dL Ur Leukocyte Esterase (NEGATIVE) Urine WBC (Auto) (0-5) /HPF Urine RBC (Auto) (0-2) /HPF U Epithel Cells (Auto) (FEW) /HPF Urine Bacteria (Auto) (NEGATIVE) /HPF Urine Culture Reflexed (NO) Urine Glucose (NEGATIVE) mg/dL Influenza Type A Ag (NEGATIVE) Influenza Type B Ag (NEGATIVE) RSV (PCR) (Negative) SARS-CoV-2 (PCR) (NEGATIVE) Slides for Path Review 10/20/20 Range/Units 04:00 WBC (4.0-10.5) K/mm3 RBC (4.1-5.4) M/mm3 Hgb (12.0-16.0) gm/dl Hct (35-47) % MCV (78-100) fl MCH (26-32) pg MCHC (32-36) g/dl RDW (11.5-14.0) % Plt Count (150-450) K/mm3 MPV (7.5-11.0) fl Gran % (36.0-66.0) % Eos # (Auto) (0-0.5) Absolute Lymphs (auto) (1.0-4.6) Absolute Monos (auto) (0.0-1.3) Lymphocytes % (24.0-44.0) % Monocytes % (0.0-12.0) % Eosinophils % (0.00-5.0) % Basophils % (0.0-0.4) % Absolute Granulocytes (1.4-6.9) Basophils # (0-0.4) Sodium (137-145) mmol/L Potassium (3.5-5.1) mmol/L Chloride (98-107) mmol/L Carbon Dioxide (22-30) mmol/L Anion Gap (5-15) MEQ/L BUN (7-17) mg/dL Creatinine (0.52-1.04) mg/dL Estimated GFR ML/MIN Glucose (74-106) mg/dL Calcium (8.4-10.2) mg/dL Magnesium (1.6-2.3) mg/dL Total Bilirubin (0.2-1.3) mg/dL AST (14-36) U/L ALT (0-35) U/L Alkaline Phosphatase (38-126) U/L Troponin I (0.000-0.034) ng/mL NT-Pro-B Natriuret Pep (0-1800) pg/mL Serum Total Protein (6.3-8.2) g/dL Albumin (3.5-5.0) g/dL Triglycerides 64 (30-150) mg/dL Cholesterol 112 (50-200) mg/dL LDL Cholesterol 46 (30-100) mg/dL HDL Cholesterol 43 (40-60) mg/dL Heart Disease Risk Ratio 2.6 Urine Color (YELLOW) Urine Appearance (CLEAR) Urine pH (5-6) Ur Specific [place] (1.005-1.025) Urine Protein (Negative) Urine Ketones (NEGATIVE) Urine Blood (0-5) Luis/ul Urine Nitrite (NEGATIVE) Urine Bilirubin (NEGATIVE) Urine Urobilinogen (0-1) mg/dL Ur Leukocyte Esterase (NEGATIVE) Urine WBC (Auto) (0-5) /HPF Urine RBC (Auto) (0-2) /HPF U Epithel Cells (Auto) (FEW) /HPF Urine Bacteria (Auto) (NEGATIVE) /HPF Urine Culture Reflexed (NO) Urine Glucose (NEGATIVE) mg/dL Influenza Type A Ag (NEGATIVE) Influenza Type B Ag (NEGATIVE) RSV (PCR) (Negative) SARS-CoV-2 (PCR) (NEGATIVE) Slides for Path Review - Radiology Exams Ordered Rad Exams-Entire Visit: Radiology Procedures Category Date Time Status CHEST 1 VIEW (PORTABLE) Stat Exams 10/19/20 12:48 Completed CHEST WITH CONTRAST [CT] Stat Exams 10/19/20 15:43 Completed - Procedures and Test Procedures and Tests throughout Hospitalization: Therapy Orders & Screens 10/19/20 21:46 EKG ROUTINE Comment: Diagnosis: ACS 10/19/20 23:41 OT Screen per Nursing Assess ONCE Comment: Protocol Order Physician Instructions: Greater than 3 points order OT Admission Screening Reason For Exam: Triggered on Admission Diagnosis: ACS Open Wound/Cellutlitis/Pressure Ulcers: No Acute Fx/ORIF/Change in wt bearing status: No Severe MUSCULOSKELETAL pain: Yes ADL Dysfunction: Yes Acute CVA w/Hemiparesis/Hemiplegia: No Decreased Functional Mobility/Strength: No Sprain/Strain: No Acute Post-op Mobility Dysfunction: No Total Points: 8 PT Screen per Nursing Assess ONCE Comment: Protocol Order Physician Instructions: Greater than 3 points order PT Admission Screenin Reason For Exam: Triggered on Admission Diagnosis: ACS Open Wound/Cellutlitis/Pressure Ulcers: No Acute Fx/ORIF/Change in wt bearing status: No Severe MUSCULOSKELETAL pain: Yes ADL Dysfunction: Yes Acute CVA w/Hemiparesis/Hemiplegia: No Decreased Functional Mobility/Strength: No Sprain/Strain: No Acute Post-op Mobility Dysfunction: No Total Points: 8 10/20/20 05:00 EKG ROUTINE Comment: Diagnosis: ACS 10/21/20 05:00 EKG ROUTINE Comment: Diagnosis: ACS 10/22/20 05:00 EKG ROUTINE Comment: Diagnosis: ACS - Discharge Discharge Date: 10/20/20 Disposition: Home, Self-Care Condition: Stable Prescriptions: No Action Tramadol HCl 50 mg [Ultram 50 mg] 1 tab PO Q6HPRN PRN PRN Reason: Pain Ropinirole 2Mg [Requip 2Mg Tab] 0.5 tab PO TID Quetiapine Fumarate 25 mg [Seroquel 25 MG] 1 tab PO HS Carbidopa/Levodopa [Carbidopa-Levo 25-100 Tab] 1 tab PO 5XD Follow up with: YULI [employer]ESSION[employer] [Primary Care Provider] -
[2020-10-20] MEDS ORDERED: Sinemet 25/100 MG PO SCH (10:00)
[2020-10-20] MEDS: REQUIP 2MG TAB PO SCH (10:27)
[2020-10-20 10:28] LABS: Appearance SLIGHTLY CLOUDY (CLEAR); Bacteria MODERATE /HPF (NEGATIVE); Bilirubin NEGATIVE (NEGATIVE); Blood NEGATIVE Ery/ul (0-5); Epithelial Cells RARE /HPF (FEW); Glucose NEGATIVE (NEGATIVE); Ketones SMALL (NEGATIVE); Leukocyte Esterase MODERATE (NEGATIVE); Mucus SLIGHT /HPF (NEGATIVE); Nitrite NEGATIVE (NEGATIVE); Protein,Urine Dip NEGATIVE (Negative); Specific Gravity 1.054 (1.005-1.025); Urobilinogen NEGATIVE mg/dL (0-1)
[2020-10-22] MEDS ORDERED: Macrobid 100MG Capsule PO SCH (08:00)
== END 2020-10-20 13:36 | disposition home or self-care (01) ==
LOC: ED 12:38 → MED SURG 20:45
PROVIDERS: ADMIT Family Medicine; ATTEND Family Medicine
DX: R07.9 Chest pain, unspecified (principal); Z85.3 Personal history of malignant neoplasm of breast; Z79.899 Other long term (current) drug therapy; Z90.11 Acquired absence of right breast and nipple; Z20.828 Contact with and (suspected) exposure to other viral communicable diseases
CPT/HCPCS: 0241U; 36415; 71045; 71260; 80053; 80061; 81001; 83721; 83735; 83880; 84484; 85025; 87040; 87077; 87086; 87186; 93005; 93041; 93268; 94760; 96374; 99285; G0378; 96376; J2270; A9270-GY

== ENCOUNTER 2020-10-21 16:14 | Inpatient (IN) | payer MEDICARE, OTHER ==
[2020-10-21 17:50] LABS: COVID AG -BINAX NOW RAPID TEST NEGATIVE (NEGATIVE)
[2020-10-21] MEDS ORDERED: Sodium Chloride 0.9% 1000 ML 1,000 ML ONE (18:04)
[2020-10-21] MEDS ORDERED: Zofran 4 MG/2 ML VIAL IV PRN (18:04)
[2020-10-21] MEDS ORDERED: TYLENOL 325 MG PO PRN (18:04)
[2020-10-21 18:08] LABS: Absolute Neutrophil Ct (ANC) 6.65 (1.4-6.9); BASOPHIL % 0.5 % (0.0-0.4); Basophil (Absolute #) 0.04 (0-0.4); Eosinophil % 0.1 % (0.00-5.0); Eosinophil (Absolute #) 0.01 (0-0.5); Hematocrit 42.1 % (35-47); Lymphocyte (Absolute #) 0.77 (1.0-4.6); Lymphocytes % 9.4 % (24.0-44.0); Mean Cell Volume 97.9 fl (78-100); Mean Corpuscular Hemoglobin 32.6 pg (26-32); Mean Corpuscular Hgb Concent. 33.3 g/dl (32-36); Mean Platelet Volume 8.6 fl (7.5-11.0); Monocyte (Absolute #) 0.69 (0.0-1.3); Monocytes % 8.5 % (0.0-12.0); Neutrophil % 81.5 % (36.0-66.0); Platelet Count 456 K/mm3 (150-450); Red Cell Distribution Width 13.5 % (11.5-14.0); White Blood Count 8.2 K/mm3 (4.0-10.5)
[2020-10-21 18:13] LABS: ALBUMIN 3.6 g/dL (3.5-5.0); ALKALINE PHOSPHATASE 83 U/L (38-126); ANION GAP 11.8 MEQ/L (5-15); BLOOD UREA NITROGEN 16 mg/dL (7-17); CHLORIDE 101 mmol/L (98-107); Calcium 9.4 mg/dL (8.4-10.2); Carbon Dioxide 27 mmol/L (22-30); Creatinine 1 0.53 mg/dL (0.52-1.04); EST GLOMERULAR FILTRATION RATE > 60.0 ML/MIN; Glucose 106 mg/dL (74-106); Potassium 3.7 mmol/L (3.5-5.1); SGOT/AST 20 U/L (14-36); SODIUM 135 mmol/L (137-145); Total Protein 6.9 g/dL (6.3-8.2)
[2020-10-21 18:14] LABS: SGPT/ALT < 4 U/L (0-35)
[2020-10-21] MEDS: Sodium Chloride 0.9% 1000 ML 1,000 ML IV SCH (18:35)
--- NOTE | 2020-10-21 19:21 | PCM.HP ---
History of Present Illness - Chief Complaint Chief Complaint: Bactremia,UTI History of Present Illness: is a 89 year old female pt of the medical clinic in [place], with Parkinson's disease, who was admitted directly by me with bacteremia. She had come through [facility] ER earlier this week c/o pain, was found to have a UTI, and was treated and released after spending the night (sent home on po macrobid). Blood cultures had been done x 2, and both bottles today were found to be posi tive for Gram positive cocci in clusters. I called and spoke to pt's daughter, who became tearful and said the pt was not doing well - in fact they had taken [facility] to [facility] for [facility], and she was told she was having spasms but she needed to do exercises. Pt's pain has been increasing since May, per her daughter Cecilia (via telephone). Pain is generalized. Pt tells me she's not been eating well. Pt does not walk much, only up to bedside commode and with 2 assist. Pt has had tramadol at home for pain, per her med list. - Review of Systems Constitutional: Weakness, Weight Loss Abdominal/Gastrointestinal: Nausea, Appetite Changes Genitourinary Symptoms: Dysuria (x 1 mo) Musculoskeletal: Arthralgias, Back Pain, Joint Pain, No Fall Psychological: Anxiety All Other Systems: Reviewed and Negative Medications & Allergies Home Medications: Home Medication List Carbidopa/Levodopa [Carbidopa-Levo 25-100 Tab] 1 tab PO 5XD 10/19/20 [History Confirmed 10/21/20] Quetiapine Fumarate 25 mg [Seroquel 25 MG] 1 tab PO HS 10/19/20 [History Confirmed 10/21/20] Ropinirole 2Mg [Requip 2Mg Tab] 0.5 tab PO TID 10/19/20 [History Confirmed 10/21/20] Tramadol HCl 50 mg [Ultram 50 mg] 1 tab PO Q6HPRN PRN 10/19/20 [History Confirmed 10/21/20] Nitrofurantoin Macro 100 mg [Macrobid 100MG Capsule] 100 mg PO BID 10 Days #20 cap 10/20/20 [Rx Confirmed 10/21/20] Allergies/Adverse Reactions: Allergies Allergy/AdvReac Type Severity Reaction Status Date / Time Penicillins Allergy Verified 10/19/20 21:20 Sulfa (Sulfonamide Allergy Verified 10/19/20 21:20 Antibiotics) - Past Medical History Past Medical History: Yes Neurological History: Other ENT History: Cataracts Cardiac History: No Pertinent History Respiratory History: No Pertinent History Endocrine Medical History: No Pertinent History Musculoskelatal History: No Pertinent History GI Medical History: No Pertinent History Pyscho-Social History: No Pertinent History Reproductive Disorders: Breast Cancer Comment: Parkinson's disease, 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 no other history reported by pthuseyin historian - Social History Smoking Status: Former smoker Exposure to second hand smoke: No Alcohol: None Drug Use: none - Physical Exam Vital Signs: Vital Signs - 24 hr Temp Pulse Resp BP Pulse Ox 10/21/20 17:25 97.7 F 110 H 18 129/60 97 General Appearance: no apparent distress, cachetic Neurologic Exam: alert, cooperative, other (mask like facies) Eye Exam: eyes nml inspection, No scleral icterus Ears, Nose, Throat Exam: moist mucous membranes Neck Exam: non-tender, No lymphadenopathy Respiratory Exam: diminished breath sounds, prolonged expirations, No crackles/rales, No rhonchi, No wheezing Cardiovascular Exam: regular rate/rhythm, normal heart sounds, No murmur Gastrointestinal/Abdomen Exam: soft, normal bowel sounds, No tenderness, No distention, No mass, No guarding, No rebound Back Exam: normal inspection, No rash Extremity Exam: other (feet are cool bilat but not discolored), No pedal edema, No swelling Skin Exam: normal color, dry, No rash Results - Labs Lab/Micro Results: Lab Results-Last 24 Hours 10/21/20 10/21/20 10/21/20 Range/Units 17:29 17:55 18:04 WBC 8.2 (4.0-10.5) K/mm3 RBC 4.30 (4.1-5.4) M/mm3 Hgb 14.0 (12.0-16.0) gm/dl Hct 42.1 (35-47) % MCV 97.9 (78-100) fl MCH 32.6 H (26-32) pg MCHC 33.3 (32-36) g/dl RDW 13.5 (11.5-14.0) % Plt Count 456 H (150-450) K/mm3 MPV 8.6 (7.5-11.0) fl Gran % 81.5 H (36.0-66.0) % Eos # (Auto) 0.01 (0-0.5) Absolute Lymphs (auto) 0.77 L (1.0-4.6) Absolute Monos (auto) 0.69 (0.0-1.3) Lymphocytes % 9.4 L (24.0-44.0) % Monocytes % 8.5 (0.0-12.0) % Eosinophils % 0.1 (0.00-5.0) % Basophils % 0.5 (0.0-0.4) % Absolute Granulocytes 6.65 (1.4-6.9) Basophils # 0.04 (0-0.4) Sodium (137-145) mmol/L Potassium (3.5-5.1) mmol/L Chloride (98-107) mmol/L Carbon Dioxide (22-30) mmol/L Anion Gap (5-15) MEQ/L BUN (7-17) mg/dL Creatinine (0.52-1.04) mg/dL Estimated GFR ML/MIN Glucose (74-106) mg/dL Lactic Acid 1.0 (0.4-2.0) Calcium (8.4-10.2) mg/dL Total Bilirubin (0.2-1.3) mg/dL AST (14-36) U/L ALT (0-35) U/L Alkaline Phosphatase (38-126) U/L Serum Total Protein (6.3-8.2) g/dL Albumin (3.5-5.0) g/dL SARS-CoV-2 Ag (Rapid) NEGATIVE (NEGATIVE) 10/21/20 Range/Units 18:04 WBC (4.0-10.5) K/mm3 RBC (4.1-5.4) M/mm3 Hgb (12.0-16.0) gm/dl Hct (35-47) % MCV (78-100) fl MCH (26-32) pg MCHC (32-36) g/dl RDW (11.5-14.0) % Plt Count (150-450) K/mm3 MPV (7.5-11.0) fl Gran % (36.0-66.0) % Eos # (Auto) (0-0.5) Absolute Lymphs (auto) (1.0-4.6) Absolute Monos (auto) (0.0-1.3) Lymphocytes % (24.0-44.0) % Monocytes % (0.0-12.0) % Eosinophils % (0.00-5.0) % Basophils % (0.0-0.4) % Absolute Granulocytes (1.4-6.9) Basophils # (0-0.4) Sodium 135 L (137-145) mmol/L Potassium 3.7 (3.5-5.1) mmol/L Chloride 101 (98-107) mmol/L Carbon Dioxide 27 (22-30) mmol/L Anion Gap 11.8 (5-15) MEQ/L BUN 16 (7-17) mg/dL Creatinine 0.53 (0.52-1.04) mg/dL Estimated GFR > 60.0 ML/MIN Glucose 106 (74-106) mg/dL Lactic Acid (0.4-2.0) Calcium 9.4 (8.4-10.2) mg/dL Total Bilirubin 0.70 (0.2-1.3) mg/dL AST 20 (14-36) U/L ALT < 4 (0-35) U/L Alkaline Phosphatase 83 (38-126) U/L Serum Total Protein 6.9 (6.3-8.2) g/dL Albumin 3.6 (3.5-5.0) g/dL SARS-CoV-2 Ag (Rapid) (NEGATIVE) - Radiology Impressions Radiology Exams & Impressions: Radiology Procedures Category Date Time Status KUB Routine Exams 10/21/20 17:30 Ordered Assessment/Plan (1) Bacteremia Current Visit: Yes Status: Acute Assessment & Plan: Pt started on IV rocephin; may change to IV vancomycin after her bloodwork is in. Code(s): R78.81 - BACTEREMIA (2) UTI (urinary tract infection) Current Visit: Yes Status: Acute Qualifiers: Urinary tract infection type: acute cystitis Code(s): N39.0 - URINARY TRACT INFECTION, SITE NOT SPECIFIED (3) Parkinson disease Current Visit: Yes Status: Acute Code(s): G20 - PARKINSON'S DISEASE (4) Generalized pain Current Visit: Yes Status: Chronic Assessment & Plan: change tramadol to norco 5 and add flexeril. Less concern for falls since pt is on fall precautions and typically doesn't walk anyway. Code(s): R52 - PAIN, UNSPECIFIED (5) Degenerative arthritis Current Visit: No Status: Acute Qualifiers: Osteoarthritis location: multiple joints Osteoarthritis type: primary Qualified Code(s): M89.49 - Other hypertrophic osteoarthropathy, multiple sites Code(s): M19.90 - UNSPECIFIED OSTEOARTHRITIS, UNSPECIFIED SITE
[2020-10-21] MEDS: Cyclobenzaprine 10 MG PO SCH (19:38)
[2020-10-21] MEDS: NORCO 5/325 MG PO PRN (19:40)
[2020-10-21] MEDS ORDERED: Sinemet 25/100 MG PO SCH (19:45)
[2020-10-21] MEDS ORDERED: VANCOMYCIN 1 GRAM/200 ML BAG 1 GM/200 ML PIGGYBACK IV SCH (19:45)
[2020-10-21] MEDS: Seroquel 25 MG PO SCH (21:44)
[2020-10-21] MEDS: Sinemet 25/100 MG PO SCH (21:44)
[2020-10-21] MEDS: Requip 0.5 MG PO SCH (21:45)
[2020-10-22] MEDS: Sinemet 25/100 MG PO SCH ×6 (02:44→21:06)
[2020-10-22] MEDS: Cyclobenzaprine 10 MG PO SCH ×4 (02:44→21:06)
[2020-10-22] MEDS: Sodium Chloride 0.9% 1000 ML 1,000 ML IV SCH ×2 (05:07→14:26)
[2020-10-22] MEDS: NORCO 5/325 MG PO PRN ×2 (06:40→11:36)
--- NOTE | 2020-10-22 07:48 | XRAY ---
Indication: UTI. Bacteremia. Comparison: None KUB nonacute and nonobstructed with moderate diffuse fecal debris throughout. Solid organs unremarkable. Scattered aortic calcifications. Osseous structures intact with osteopenia, moderate levorotoscoliosis, and mild degenerative changes. Impression: Fecal stasis.
[2020-10-22] MEDS ORDERED: Macrobid 100MG Capsule PO SCH (08:00)
[2020-10-22] MEDS: Requip 0.5 MG PO SCH ×3 (09:08→21:06)
[2020-10-22] MEDS ORDERED: ROCEPHIN 1 Gm-D5w 50 ml Bag** 1 G/50 ML IVPB IV SCH (10:00)
--- NOTE | 2020-10-22 13:18 | PCM.NOTE ---
Date and Time: 10/22/20 1313 Subjective Assessment: Pt is sitting up in bed, states she's not doing well because she's been up too long and she needs to sit on the commode. Thinks the pain medicine and muscle relaxer helped her. - Review of Systems Constitutional: No Fever Respiratory: No Cough Objective Exam General Appearance: mild distress (asking to be moved), alert Neurologic Exam: cooperative, other (mask like facies) Skin Exam: normal color, warm, dry, No rash Respiratory Exam: normal breath sounds, crackles/rales, rhonchi, No lungs clear, No wheezing Cardiovascular Exam: regular rate/rhythm, normal heart sounds, No murmur Extremity Exam: other (appears stiff with generalized difficulty moving her limbs.), No pedal edema, No swelling OBJECTIVE DATA Vital Signs: Vital Signs - 24 hr Temp Pulse Resp BP Pulse Ox 10/22/20 12:00 98.1 F 100 H 18 137/63 98 10/22/20 07:56 98.0 F 101 H 16 116/58 97 10/22/20 03:41 97.6 F 94 H 18 119/56 94 L 10/22/20 00:00 97.9 F 95 H 16 90/44 95 10/21/20 17:25 97.7 F 110 H 18 129/60 97 Pain Assessment - Last Documented Pain Intensity 10 [facility] Intake and Output: Intake & Output 10/20/20 10/21/20 10/22/20 10/23/20 11:59 11:59 11:59 11:59 Intake Total 1642 Output Total 550 Balance 1092 Weight 39.6 kg Lab Results: Lab Results-Last 24 Hours 10/21/20 10/21/20 10/21/20 Range/Units 17:29 17:55 18:04 WBC 8.2 (4.0-10.5) K/mm3 RBC 4.30 (4.1-5.4) M/mm3 Hgb 14.0 (12.0-16.0) gm/dl Hct 42.1 (35-47) % MCV 97.9 (78-100) fl MCH 32.6 H (26-32) pg MCHC 33.3 (32-36) g/dl RDW 13.5 (11.5-14.0) % Plt Count 456 H (150-450) K/mm3 MPV 8.6 (7.5-11.0) fl Gran % 81.5 H (36.0-66.0) % Eos # (Auto) 0.01 (0-0.5) Absolute Lymphs (auto) 0.77 L (1.0-4.6) Absolute Monos (auto) 0.69 (0.0-1.3) Lymphocytes % 9.4 L (24.0-44.0) % Monocytes % 8.5 (0.0-12.0) % Eosinophils % 0.1 (0.00-5.0) % Basophils % 0.5 (0.0-0.4) % Absolute Granulocytes 6.65 (1.4-6.9) Basophils # 0.04 (0-0.4) Sodium (137-145) mmol/L Potassium (3.5-5.1) mmol/L Chloride (98-107) mmol/L Carbon Dioxide (22-30) mmol/L Anion Gap (5-15) MEQ/L BUN (7-17) mg/dL Creatinine (0.52-1.04) mg/dL Estimated GFR ML/MIN Glucose (74-106) mg/dL Lactic Acid 1.0 (0.4-2.0) Calcium (8.4-10.2) mg/dL Total Bilirubin (0.2-1.3) mg/dL AST (14-36) U/L ALT (0-35) U/L Alkaline Phosphatase (38-126) U/L Serum Total Protein (6.3-8.2) g/dL Albumin (3.5-5.0) g/dL SARS-CoV-2 Ag (Rapid) NEGATIVE (NEGATIVE) 10/21/20 Range/Units 18:04 WBC (4.0-10.5) K/mm3 RBC (4.1-5.4) M/mm3 Hgb (12.0-16.0) gm/dl Hct (35-47) % MCV (78-100) fl MCH (26-32) pg MCHC (32-36) g/dl RDW (11.5-14.0) % Plt Count (150-450) K/mm3 MPV (7.5-11.0) fl Gran % (36.0-66.0) % Eos # (Auto) (0-0.5) Absolute Lymphs (auto) (1.0-4.6) Absolute Monos (auto) (0.0-1.3) Lymphocytes % (24.0-44.0) % Monocytes % (0.0-12.0) % Eosinophils % (0.00-5.0) % Basophils % (0.0-0.4) % Absolute Granulocytes (1.4-6.9) Basophils # (0-0.4) Sodium 135 L (137-145) mmol/L Potassium 3.7 (3.5-5.1) mmol/L Chloride 101 (98-107) mmol/L Carbon Dioxide 27 (22-30) mmol/L Anion Gap 11.8 (5-15) MEQ/L BUN 16 (7-17) mg/dL Creatinine 0.53 (0.52-1.04) mg/dL Estimated GFR > 60.0 ML/MIN Glucose 106 (74-106) mg/dL Lactic Acid (0.4-2.0) Calcium 9.4 (8.4-10.2) mg/dL Total Bilirubin 0.70 (0.2-1.3) mg/dL AST 20 (14-36) U/L ALT < 4 (0-35) U/L Alkaline Phosphatase 83 (38-126) U/L Serum Total Protein 6.9 (6.3-8.2) g/dL Albumin 3.6 (3.5-5.0) g/dL SARS-CoV-2 Ag (Rapid) (NEGATIVE) Radiology Exams: Radiology Procedures Category Date Time Status KUB Routine Exams 10/21/20 17:30 Completed Assessment/Plan (1) Bacteremia Current Visit: Yes Status: Acute Assessment & Plan: On IV vancomycin day #2. Preliminary report G+ cocci in clusters. Code(s): R78.81 - BACTEREMIA (2) UTI (urinary tract infection) Current Visit: Yes Status: Acute Qualifiers: Urinary tract infection type: acute cystitis Assessment & Plan: Failed outpatient therapy with macrobid. On IV vancomycin (E. faecalis, susceptible to vancomycin). Code(s): N39.0 - URINARY TRACT INFECTION, SITE NOT SPECIFIED (3) Parkinson disease Current Visit: Yes Status: Chronic Assessment & Plan: Has been generally declining, per her daughter, since May 2020. Code(s): G20 - PARKINSON'S DISEASE (4) Generalized pain Current Visit: Yes Status: Chronic Assessment & Plan: Better with norco and flexeril. Would worry about falls in this pt, but she is bed bound and has assistance to get to the bedside commode. Code(s): R52 - PAIN, UNSPECIFIED (5) Degenerative arthritis Current Visit: No Status: Acute Qualifiers: Osteoarthritis location: multiple joints Osteoarthritis type: primary Qualified Code(s): M89.49 - Other hypertrophic osteoarthropathy, multiple sites Code(s): M19.90 - UNSPECIFIED OSTEOARTHRITIS, UNSPECIFIED SITE
[2020-10-22] MEDS: VANCOCIN 500 MG VIAL*** 500 MG in Sodium Chloride 100ML MINI-BAG PLUS 100 ML IV SCH (18:04)
[2020-10-22] MEDS: Seroquel 25 MG PO SCH (21:06)
[2020-10-23] MEDS: Sodium Chloride 0.9% 1000 ML 1,000 ML IV SCH ×3 (02:11→21:42)
[2020-10-23] MEDS: NORCO 5/325 MG PO PRN (07:32)
[2020-10-23] MEDS: Sinemet 25/100 MG PO SCH ×5 (07:34→23:28)
--- NOTE | 2020-10-23 08:34 | PCM.NOTE ---
Date and Time: 10/23/20830 Subjective Assessment: Pt is complaining of pain this morning; just received pain meds. She does agree she may be moving better this morning. was complaining of discomfort with telemetry pads and is relieved they have been removed. - Review of Systems Constitutional: Weakness, No Fever Objective Exam General Appearance: no apparent distress, anxiety Neurologic Exam: alert, cooperative Skin Exam: normal color, warm, dry, No rash Ears, Nose, Throat Exam: moist mucous membranes Respiratory Exam: lungs clear, diminished breath sounds, No crackles/rales, No rhonchi, No wheezing Cardiovascular Exam: regular rate/rhythm, normal heart sounds, No murmur Extremity Exam: No pedal edema, No swelling OBJECTIVE DATA Vital Signs: Vital Signs - 24 hr Temp Pulse Resp BP Pulse Ox 10/23/20 08:00 99.3 F 90 12 126/59 96 10/23/20 03:45 97.6 F 94 H 17 125/58 93 L 10/23/20 00:00 97.9 F 86 16 107/84 93 L 10/22/20 20:00 98.3 F 93 H 17 130/60 97 10/22/20 16:00 98.5 F 95 H 16 126/63 95 10/22/20 12:00 98.1 F 100 H 18 137/63 98 Pain Assessment - Last Documented Pain Intensity 10 Pain Scale Used 0-10 Pain Scale Intake and Output: Intake & Output 10/20/20 10/21/20 10/22/20 10/23/20 11:59 11:59 11:59 11:59 Intake Total 1642 1952 Output Total 550 850 Balance 1092 1102 Weight 39.6 kg Radiology Exams: Radiology Procedures Category Date Time Status KUB Routine Exams 10/21/20 17:30 Completed Assessment/Plan (1) Bacteremia Current Visit: Yes Status: Acute Assessment & Plan: Pt is on IV vancomycin; I have spoken with the lab and final culture results will be back tomorrow. Code(s): R78.81 - BACTEREMIA (2) UTI (urinary tract infection) Current Visit: Yes Status: Acute Qualifiers: Urinary tract infection type: acute cystitis Assessment & Plan: On Vancomycin. Code(s): N39.0 - URINARY TRACT INFECTION, SITE NOT SPECIFIED (3) Parkinson disease Current Visit: Yes Status: Chronic Code(s): G20 - PARKINSON'S DISEASE (4) Generalized pain Current Visit: Yes Status: Chronic Assessment & Plan: She is definitely moving better this morning. Consulted PT. Pt says she has home PT usually. Code(s): R52 - PAIN, UNSPECIFIED (5) Degenerative arthritis Current Visit: No Status: Acute Qualifiers: Osteoarthritis location: multiple joints Osteoarthritis type: primary Qualified Code(s): M89.49 - Other hypertrophic osteoarthropathy, multiple sites Code(s): M19.90 - UNSPECIFIED OSTEOARTHRITIS, UNSPECIFIED SITE
[2020-10-23] MEDS: Cyclobenzaprine 10 MG PO SCH ×3 (10:28→21:42)
[2020-10-23] MEDS: Requip 0.5 MG PO SCH ×3 (10:28→21:42)
[2020-10-23] MEDS: VANCOCIN 500 MG VIAL*** 500 MG in Sodium Chloride 100ML MINI-BAG PLUS 100 ML IV SCH (18:35)
[2020-10-23] MEDS: Seroquel 25 MG PO SCH (21:43)
[2020-10-24] MEDS: Sodium Chloride 0.9% 1000 ML 1,000 ML IV SCH (06:18)
[2020-10-24] MEDS: Sinemet 25/100 MG PO SCH ×4 (06:18→18:57)
[2020-10-24] MEDS: Requip 0.5 MG PO SCH ×3 (08:14→21:20)
[2020-10-24] MEDS: Cyclobenzaprine 10 MG PO SCH ×3 (08:14→21:20)
--- NOTE | 2020-10-24 11:02 | XRAY ---
Indication: retirement placement. Comparison: October 19, 2020. Portable chest demonstrates new moderate bibasilar effusions and new enlarging heart concerning for cardiac decompensation versus fluid overload. Superimposed pneumonia not completely excluded. Stable large hiatal hernia with partial intrathoracic stomach.
[2020-10-24] MEDS ORDERED: Lasix 40 MG/4 ML IV ONE (12:08)
[2020-10-24 12:30] LABS: Absolute Neutrophil Ct (ANC) 3.02 (1.4-6.9); BASOPHIL % 0.5 % (0.0-0.4); Basophil (Absolute #) 0.02 (0-0.4); Eosinophil % 0.8 % (0.00-5.0); Eosinophil (Absolute #) 0.03 (0-0.5); Hematocrit 39.6 % (35-47); Hemoglobin 13.1 gm/dl (12.0-16.0); Lymphocyte (Absolute #) 0.59 (1.0-4.6); Mean Cell Volume 98.5 fl (78-100); Mean Corpuscular Hemoglobin 32.6 pg (26-32); Mean Corpuscular Hgb Concent. 33.1 g/dl (32-36); Mean Platelet Volume 8.3 fl (7.5-11.0); Monocyte (Absolute #) 0.28 (0.0-1.3); Monocytes % 7.1 % (0.0-12.0); Neutrophil % 76.6 % (36.0-66.0); Platelet Count 402 K/mm3 (150-450); Red Blood Count 4.02 M/mm3 (4.1-5.4); Red Cell Distribution Width 13.3 % (11.5-14.0); White Blood Count 3.9 K/mm3 (4.0-10.5)
[2020-10-24 12:51] LABS: ANION GAP 8.6 MEQ/L (5-15); BLOOD UREA NITROGEN 4 mg/dL (7-17); CHLORIDE 104 mmol/L (98-107); Calcium 8.4 mg/dL (8.4-10.2); Carbon Dioxide 27 mmol/L (22-30); Creatinine 1 0.42 mg/dL (0.52-1.04); EST GLOMERULAR FILTRATION RATE > 60.0 ML/MIN; Glucose 89 mg/dL (74-106); NT PRO BNP 313 pg/mL (0-1800); SODIUM 137 mmol/L (137-145)
[2020-10-24 13:10] LABS: Potassium 2.9 mmol/L (3.5-5.1)
[2020-10-24] MEDS ORDERED: K-LYTE 25 MEQ PO ONE ×2 (13:17→18:49)
[2020-10-24 14:29] LABS: Slide Review 1 YES
[2020-10-24] MEDS ORDERED: TROUGH DRUG LEVELS IJ ONE (18:30)
[2020-10-24 18:37] LABS: MAGNESIUM 1.6 mg/dL (1.6-2.3)
--- NOTE | 2020-10-24 18:41 | PCM.NOTE ---
Date and Time: 10/24/201832 Late entry for 10/24/20 11:30 am. Subjective Assessment: Pt is feeling better today. She would like to go to rehab when she leaves. - Review of Systems Constitutional: No Fever Abdominal/Gastrointestinal: No Vomiting Objective Exam General Appearance: no apparent distress, alert Neurologic Exam: cooperative, normal mood/affect (fairly normal facies today) Skin Exam: normal color, warm, dry, No rash Ears, Nose, Throat Exam: moist mucous membranes Respiratory Exam: normal breath sounds, lungs clear, No crackles/rales, No r honchi, No wheezing Cardiovascular Exam: regular rate/rhythm, normal heart sounds, No murmur Gastrointestinal/Abdomen Exam: soft, No tenderness, No distention Extremity Exam: No pedal edema, No swelling OBJECTIVE DATA Vital Signs: Vital Signs - 24 hr Temp Pulse Resp BP Pulse Ox 10/24/20 16:00 98.5 F 89 22 147/72 97 10/24/20 12:00 98.1 F 93 H 20 140/68 97 10/24/20 07:32 98.0 F 93 H 20 160/67 98 10/24/20 04:00 98.8 F 90 16 156/67 96 10/24/20 00:00 99.0 F 78 16 116/58 94 L 10/23/20 20:00 99.3 F 70 16 157/69 97 Pain Assessment - Last Documented Pain Intensity 0 Pain Scale Used 0-10 Pain Scale Intake and Output: Intake & Output 10/22/20 10/23/20 10/24/20 10/25/20 11:59 11:59 11:59 11:59 Intake Total 1642 2072 2126 1071 Output Total 550 1150 1450 600 Balance 1092 922 676 471 Weight 39.6 kg Lab Results: Lab Results-Last 24 Hours 10/24/20 10/24/20 Range/Units 12:28 12:28 WBC 3.9 L (4.0-10.5) K/mm3 RBC 4.02 L (4.1-5.4) M/mm3 Hgb 13.1 (12.0-16.0) gm/dl Hct 39.6 (35-47) % MCV 98.5 (78-100) fl MCH 32.6 H (26-32) pg MCHC 33.1 (32-36) g/dl RDW 13.3 (11.5-14.0) % Plt Count 402 (150-450) K/mm3 MPV 8.3 (7.5-11.0) fl Gran % 76.6 H (36.0-66.0) % Eos # (Auto) 0.03 (0-0.5) Absolute Lymphs (auto) 0.59 L (1.0-4.6) Absolute Monos (auto) 0.28 (0.0-1.3) Lymphocytes % 15.0 L (24.0-44.0) % Monocytes % 7.1 (0.0-12.0) % Eosinophils % 0.8 (0.00-5.0) % Basophils % 0.5 (0.0-0.4) % Absolute Granulocytes 3.02 (1.4-6.9) Basophils # 0.02 (0-0.4) Sodium 137 (137-145) mmol/L Potassium 2.9 L* (3.5-5.1) mmol/L Chloride 104 (98-107) mmol/L Carbon Dioxide 27 (22-30) mmol/L Anion Gap 8.6 (5-15) MEQ/L BUN 4 L (7-17) mg/dL Creatinine 0.42 L (0.52-1.04) mg/dL Estimated GFR > 60.0 ML/MIN Glucose 89 (74-106) mg/dL Calcium 8.4 (8.4-10.2) mg/dL NT-Pro-B Natriuret Pep 313 (0-1800) pg/mL Slides for Path Review YES Radiology Exams: Radiology Procedures Category Date Time Status CHEST 1 VIEW (PORTABLE) Urgent Exams 10/24/20 09:49 Completed Multi-Disciplinary Progress Notes: Multi-Disciplinary Progress Notes 10/24/20 13:29 Case Management Note by Chio Beckman SPOKE WITH HEATHER AT [facility], THEY HAVE ACCEPT PT FOR REHAB WHEN MD IS READY FOR DISCHARGE. PT HAS BEEN ASSIGNED ROOM [address] ON [facility]. Initialized on 10/24/20 13:29 - END OF NOTE 10/24/20 11:38 Case Management Note by Chio Beckman UPDATE GIVEN TO WILLI - REPORTED LIKELY TRANSITION TO [facility] ON DISCHARGE. Initialized on 10/24/20 11:38 - END OF NOTE 10/24/20 11:30 Case Management Note by Chio Beckman [facility] TO POST ACUTE TRANSFER FORM ALSO PLACED ON CHART FOR MD SIGNATURE PRIOR TO DISCHARGE TO [facility] Initialized on 10/24/20 11:30 - END OF NOTE 10/24/20 10:02 (created 10/24/20 11:28) Case Management Note by Chio Beckman PT IS AGREEABLE FOR REHAB STAY. REFERRAL CALLED TO [facility], SPOKE WITH HEATHER, FAXED INFORMATION TO [phone] PER REQUEST. PASRR COMPLETE, PLACED ON CHART, COPY ALSO FAXED TO [facility]. NO LEVEL II REQUIRED. Initialized on 10/24/20 11:28 - END OF NOTE Assessment/Plan (1) Bacteremia Current Visit: Yes Status: Acute Assessment & Plan: Per lab, the final culture and sensitivity was supposed to be done today (it was from her last admission, 10/18/20). Lab is looking into this, will have them send to [facility] to be put on the chart if at all possible. Code(s): R78.81 - BACTEREMIA (2) UTI (urinary tract infection) Current Visit: Yes Status: Acute Qualifiers: Urinary tract infection type: acute cystitis Assessment & Plan: On vancomycin day #3. Code(s): N39.0 - URINARY TRACT INFECTION, SITE NOT SPECIFIED (3) Parkinson disease Current Visit: Yes Status: Chronic Code(s): G20 - PARKINSON'S DISEASE (4) Generalized pain Current Visit: Yes Status: Chronic Assessment & Plan: Better today. She will need to go home with some norco and flexeril, which we started here. Code(s): R52 - PAIN, UNSPECIFIED (5) Degenerative arthritis Current Visit: No Status: Chronic Qualifiers: Osteoarthritis location: multiple joints Osteoarthritis type: primary Qualified Code(s): M89.49 - Other hypertrophic osteoarthropathy, multiple sites Code(s): M19.90 - UNSPECIFIED OSTEOARTHRITIS, UNSPECIFIED SITE
[2020-10-24] MEDS: VANCOCIN 500 MG VIAL*** 500 MG in Sodium Chloride 100ML MINI-BAG PLUS 100 ML IV SCH (18:57)
[2020-10-24] MEDS: Seroquel 25 MG PO SCH (21:20)
[2020-10-25] MEDS: Sinemet 25/100 MG PO SCH ×4 (01:03→15:07)
[2020-10-25 05:38] LABS: Hematocrit 37.4 % (35-47); Hemoglobin 12.3 gm/dl (12.0-16.0); Mean Cell Volume 97.9 fl (78-100); Mean Corpuscular Hemoglobin 32.2 pg (26-32); Mean Corpuscular Hgb Concent. 32.9 g/dl (32-36); Mean Platelet Volume 8.2 fl (7.5-11.0); Platelet Count 420 K/mm3 (150-450); Red Blood Count 3.82 M/mm3 (4.1-5.4); Red Cell Distribution Width 13.4 % (11.5-14.0); White Blood Count 3.9 K/mm3 (4.0-10.5)
[2020-10-25 06:13] LABS: ANION GAP 7.2 MEQ/L (5-15); BLOOD UREA NITROGEN 5 mg/dL (7-17); CHLORIDE 101 mmol/L (98-107); Calcium 8.6 mg/dL (8.4-10.2); Carbon Dioxide 32 mmol/L (22-30); Creatinine 1 0.52 mg/dL (0.52-1.04); EST GLOMERULAR FILTRATION RATE > 60.0 ML/MIN; Glucose 77 mg/dL (74-106); MAGNESIUM 1.7 mg/dL (1.6-2.3); SODIUM 137 mmol/L (137-145)
[2020-10-25 06:46] LABS: Potassium 2.8 mmol/L (3.5-5.1)
[2020-10-25] MEDS ORDERED: POTASSIUM CHLORIDE 20 mEq IN WATER 100ML 20 MEQ/100 ML BAG IV SCH (07:00)
[2020-10-25] MEDS ORDERED: Sodium Chloride 0.9% 500 ML 500 ML IV SCH (07:00)
[2020-10-25] MEDS ORDERED: Potassium Chloride 40 MEQ/20 ML VIAL 40 MEQ, XYLOCAINE 1% HCL 20 ML MDV*** 2 ML in Sodi... IV ONE (08:00)
[2020-10-25] MEDS ORDERED: VANCOCIN 500 MG VIAL*** 500 MG in Sodium Chloride 100ML MINI-BAG PLUS 100 ML IV SCH (09:00)
[2020-10-25] MEDS: Cyclobenzaprine 10 MG PO SCH ×2 (09:02→15:06)
[2020-10-25] MEDS: Requip 0.5 MG PO SCH ×2 (09:02→15:07)
[2020-10-25] MEDS ORDERED: K-LYTE 25 MEQ PO SCH (10:00)
[2020-10-25] MEDS ORDERED: Klor Con 10 MEQ PO SCH (10:00)
[2020-10-25 11:49] VITALS: BP 139/67; PULSE 103; O2SAT 98
== END 2020-10-25 14:25 | DRG 872 ==
LOC: MED SURG 17:07 → OBSVTOIN 17:07 → INTOOBSV 17:07 → OBSVTOIN 10-22 13:13
PROVIDERS: ADMIT Family Medicine; ATTEND Family Medicine
DX: R78.81 Bacteremia (principal); N39.0 Urinary tract infection, site not specified; G20 Parkinson's disease; R52 Pain, unspecified; M19.90 Unspecified osteoarthritis, unspecified site; Z79.899 Other long term (current) drug therapy
CPT/HCPCS: 36415; 71045; 74018; 80048; 80053; 80202; 83605; 83735; 83880; 84132; 85025; 85027; 87086; 93268; 97110; 97161; 97530; 99000; G0378; J1940; J3370; J3480; A9270-GY

== ENCOUNTER 2022-02-15 06:29 | Emergency (ER) | payer MEDICARE, OTHER ==
--- NOTE | 2022-02-15 07:17 | ERPHSYRPT ---
- History of Present Illness Time Seen by Provider: 02/15/22 07:00 Source: patient, EMS Exam Limitations: no limitations Patient Subjective Stated Complaint: "my feet are swollen and hurting". Triage Nursing Assessment: pt arrived via ambulance, pt alert and oriented x3, pleasant and cooperative. Pt c/o her feet swelling x1 week but just getting worse and now they hurt to stand on. Pt lives at [facility]. Pt does not ambulate but uses her wheelchair and states, "I can't use my wheelchair now with my legs and feet hurting so bad". Lung clear, heart tones reg. 4+ pitting edema to lt lower ext and 3+ pitting edema to rt lower ext. Bilat lower legs have 2+ pitting edema. Physician History: This is an 89-year-old white female patient of Dr. Wagoner who lives in an assisted living facility ([facility]). She does not ambulate but she does transfer and move in short distances using a wheelchair. However, in the last week she has noticed increase in swelling of her bilateral lower extremities. 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 Patient denies shortness of breath. She denies chest pain. Because of the increase in her bilateral lower extremity edema, she was sent here for evaluation via EMS. Method of Injury: other (No injury) Occurred: other (Symptoms progressing over a week) Severity of Pain-Max: mild (To moderate) Severity of Pain-Current: mild Lower Extremities Pain: leg: bilateral, foot: bilateral, ankle: bilateral Modifying Factors: Improves With: nothing Associated Symptoms: none Allergies/Adverse Reactions: Penicillins Allergy (Verified 02/15/22 06:50) Sulfa (Sulfonamide Antibiotics) Allergy (Verified 02/15/22 06:50) Home Medications: Carbidopa/Levodopa [Carbidopa-Levo 25-100 Tab] 1 tab PO 5XD 10/19/20 [History] Ropinirole 2Mg [Requip 2Mg Tab] 0.5 tab PO TID 10/19/20 [History] Gabapentin 100 mg PO TID 02/15/22 [History] Loratadine 10 mg [Claritin 10 mg] 1 tab PO DAILY 02/15/22 [History] Melatonin 5 mg PO HS 02/15/22 [History] Mirtazapine [Remeron] 7.5 mg PO HS 02/15/22 [History] Polyethylene Glycol 3350 17 gm [Miralax Powder 17GM PACKET] 17 gm PO DAILY 02/15/22 [History] Hx Tetanus, Diphtheria Vaccination/Date Given: Yes Hx Influenza Vaccination/Date Given: No Hx Pneumococcal Vaccination/Date Given: Yes Immunizations Up to Date: Yes Travel Risk - International Travel Have you traveled outside of the country in past 3 weeks: No - Coronavirus Screening Are you exhibiting any of the following symptoms?: No Close contact with a COVID-19 positive Pt in past 14-21 Days: No - Vaccine Status Have you recieved a Covid-19 vaccination: Yes [employer]: [employer] - Vaccination Dates Date of 2cond Vaccination (if applicable): . - Review of Systems Constitutional: No Symptoms Eyes: No Symptoms Ears, Nose, & Throat: No Symptoms Respiratory: No Symptoms Cardiac: No Symptoms Abdominal/Gastrointestinal: No Symptoms Genitourinary Symptoms: No Symptoms Musculoskeletal: Other (Bilateral lower extremity edema) Skin: No Symptoms Neurological: No Symptoms Psychological: No Symptoms Endocrine: No Symptoms Hematologic/Lymphatic: No Symptoms Immunological/Allergic: No Symptoms All Other Systems: Reviewed and Negative - Past Medical History Pertinent Past Medical History: Yes Neurological History: Peripheral Neuropathy, Other ENT History: Cataracts Cardiac History: No Pertinent History Respiratory History: No Pertinent History Endocrine Medical History: No Pertinent History Musculoskeletal History: No Pertinent History GI Medical History: Gallbladder Disease Psycho-Social History: No Pertinent History Female Reproductive Disorders: Breast Cancer Other Medical History: Parkinson's disease, 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 no other history reported by pt, poor historian - Social History Smoking Status: Former smoker Exposure to second hand smoke: Yes Drug Use: none Patient Lives Alone: No (assisted living) - Nursing Vital Signs Nursing Vital Signs: Initial Vital Signs Pulse Rate 89 02/15/22 06:31 Respiratory Rate 20 02/15/22 06:31 Blood Pressure 174/90 02/15/22 06:31 O2 Sat by Pulse Oximetry 96 08/26/22 06:31 Pain Scale Pain Intensity 10 - Physical Exam General Appearance: no apparent distress, alert Eyes, Ears, Nose, Throat Exam: normal ENT inspection, moist mucous membranes Neck Exam: normal inspection, non-tender, supple, full range of motion Cardiovascular/Respiratory Exam: chest non-tender, no respiratory distress Gastrointestinal/Abdominal Exam: non-tender Back Exam: normal inspection, normal range of motion, No CVA tenderness, No vertebral tenderness Hips Exam: bilateral: non-tender, normal inspection, normal range of motion, no evidence of injury Legs Exam: bilateral leg: normal range of motion, no evidence of injury, swelling (Bilateral below the knee left greater than right) Knees Exam: bilateral knee: non-tender, normal inspection, normal range of motion, no evidence of injury Ankle Exam: bilateral ankle: normal range of motion, no evidence of injury, soft tissue tenderness, swelling (Left greater than right) Foot Exam: bilateral foot: normal range of motion, no evidence of injury, soft tissue tenderness, swelling (Left greater than right) Neuro/Tendon Exam: normal sensation, normal motor functions, responds to pain, n o evidence tendon injury Mental Status Exam: alert, oriented x 3 Skin Exam: normal color, warm, dry SpO2 Interpretation: normal SpO2: 96 O2 Delivery: Room Air - Course Nursing assessment & vital signs reviewed: Yes Ordered Tests: Active Orders 24 hr Category Date Time Status Chiropractic Practice Manager STAT Care 02/15/22 07:18 Active IV Insertion STAT Care 02/15/22 07:17 Active Pulse Oximetry (ED) STAT Care 02/15/22 07:17 Active CBC W DIFF Stat Lab 02/15/22 07:00 Completed CMP Stat Lab 02/15/22 07:00 Completed CULTURE,URINE Stat Lab 02/15/22 07:22 Received D-DIMER QUANTITATIVE Stat Lab 02/15/22 07:00 Completed MAGNESIUM Stat Lab 02/15/22 07:00 Completed NT PRO BNP Stat Lab 02/15/22 07:00 Completed UA W/RFX CULTURE Stat Lab 02/15/22 07:22 Completed Medication Summary Discontinued Medications Generic Name Dose Route Start Last Admin Trade Name Freq PRN Reason Stop Dose Admin Furosemide 40 mg 02/15/22 08:37 02/15/22 08:47 Furosemide 40 Mg/4 Ml Vial IV 02/15/22 08:38 40 mg STAT ONE Administration Ceftriaxone Sodium/Dextrose 1 g in 50 mls @ 100 mls/hr 02/15/22 08:37 Rocephin 1 Gm-D5w 50 Ml Bag IV 02/15/22 09:06 STAT STA Levofloxacin 500 mg 02/15/22 08:43 02/15/22 08:48 Levofloxacin 500 Mg Tablet PO 02/15/22 08:44 500 mg STAT ONE Administration Lab/Rad Data: Laboratory Result Diagrams 02/15/22 07:00 02/15/22 07:00 Laboratory Results 02/15/22 02/15/22 02/15/22 Range/Units 07:22 07:00 07:00 WBC (4.0-10.5) x10^3/uL RBC (4.1-5.4) x10^6/uL Hgb (12.0-16.0) g/dL Hct (35-47) % MCV (78-100) fL MCH (26-32) pg MCHC (32-36) g/dL RDW (11.5-14.0) % Plt Count (150-450) x10^3/uL MPV (7.5-11.0) fL Gran % (36.0-66.0) % Immature Gran % (Auto) (0.00-0.4) % Nucleat RBC Rel Count (0.00-0.1) % Eos # (Auto) (0-0.5) x10^3/uL Immature Gran # (Auto) (0.00-0.03) x10^3u/L Absolute Lymphs (auto) (1.0-4.6) x10^3/uL Absolute Monos (auto) (0.0-1.3) x10^3/uL Absolute Nucleated RBC (0.00-0.01) x10^3u/L Lymphocytes % (24.0-44.0) % Monocytes % (0.0-12.0) % Eosinophils % (0.00-5.0) % Basophils % (0.0-0.4) % Absolute Granulocytes (1.4-6.9) x10^3/uL Basophils # (0-0.4) x10^3/uL D-Dimer 0.28 (0.0-0.50) mg/L Sodium 138 (137-145) mmol/L Potassium 3.9 (3.5-5.1) mmol/L Chloride 104 (98-107) mmol/L Carbon Dioxide 29 (22-30) mmol/L Anion Gap 9.9 (5-15) MEQ/L BUN 13 (7-17) mg/dL Creatinine 0.63 (0.52-1.04) mg/dL Estimated GFR > 60.0 ML/MIN Glucose 101 (74-106) mg/dL Calcium 9.3 (8.4-10.2) mg/dL Magnesium 2.0 (1.6-2.3) mg/dL Total Bilirubin 0.60 (0.2-1.3) mg/dL AST 33 (14-36) U/L ALT 8 (0-35) U/L Alkaline Phosphatase 76 (38-126) U/L NT-Pro-B Natriuret Pep 147 (0-1800) pg/mL Serum Total Protein 6.9 (6.3-8.2) g/dL Albumin 4.0 (3.5-5.0) g/dL Urinalys Dipstick Clnc MAIN LAB Urine Color YELLOW (YELLOW) Urine Appearance CLEAR (CLEAR) Urine pH 8.0 (5-6) Ur Specific [place] 1.015 (1.005-1.025) POC Urine Protein Conf 30 (Negative) Urine Ketones NEGATIVE (NEGATIVE) Urine Nitrite NEGATIVE (NEGATIVE) Urine Bilirubin NEGATIVE (NEGATIVE) Urine Urobilinogen NORMAL (0-1) mg/dL Urine Leukocytes LARGE (NEGATIVE) Urine WBC (Auto) >100 (0-5) /HPF Urine RBC (Auto) 11-15 (0-2) /HPF U Epithel Cells (Auto) FEW (FEW) /HPF Urine Bacteria (Auto) MODERATE (NEGATIVE) /HPF Urine RBC SMALL (0-5) Luis/ul Urine Mucus (Auto) SLIGHT (NEGATIVE) /HPF Ur Culture Indicated? YES Urine Glucose NEGATIVE (NEGATIVE) mg/dL 02/15/22 Range/Units 07:00 WBC 5.1 (4.0-10.5) x10^3/uL RBC 3.73 L (4.1-5.4) x10^6/uL Hgb 12.8 (12.0-16.0) g/dL Hct 39.0 (35-47) % MCV 104.6 H (78-100) fL MCH 34.3 H (26-32) pg MCHC 32.8 (32-36) g/dL RDW 12.4 (11.5-14.0) % Plt Count 409 (150-450) x10^3/uL MPV 9.3 (7.5-11.0) fL Gran % 62.9 (36.0-66.0) % Immature Gran % (Auto) 0.4 (0.00-0.4) % Nucleat RBC Rel Count 0.0 (0.00-0.1) % Eos # (Auto) 0.10 (0-0.5) x10^3/uL Immature Gran # (Auto) 0.02 (0.00-0.03) x10^3u/L Absolute Lymphs (auto) 1.24 (1.0-4.6) x10^3/uL Absolute Monos (auto) 0.50 (0.0-1.3) x10^3/uL Absolute Nucleated RBC 0.00 (0.00-0.01) x10^3u/L Lymphocytes % 24.3 (24.0-44.0) % Monocytes % 9.8 (0.0-12.0) % Eosinophils % 2.0 (0.00-5.0) % Basophils % 0.6 (0.0-0.4) % Absolute Granulocytes 3.21 (1.4-6.9) x10^3/uL Basophils # 0.03 (0-0.4) x10^3/uL D-Dimer (0.0-0.50) mg/L Sodium (137-145) mmol/L Potassium (3.5-5.1) mmol/L Chloride (98-107) mmol/L Carbon Dioxide (22-30) mmol/L Anion Gap (5-15) MEQ/L BUN (7-17) mg/dL Creatinine (0.52-1.04) mg/dL Estimated GFR ML/MIN Glucose (74-106) mg/dL Calcium (8.4-10.2) mg/dL Magnesium (1.6-2.3) mg/dL Total Bilirubin (0.2-1.3) mg/dL AST (14-36) U/L ALT (0-35) U/L Alkaline Phosphatase (38-126) U/L NT-Pro-B Natriuret Pep (0-1800) pg/mL Serum Total Protein (6.3-8.2) g/dL Albumin (3.5-5.0) g/dL Urinalys Dipstick Clnc Urine Color (YELLOW) Urine Appearance (CLEAR) Urine pH (5-6) Ur Specific [place] (1.005-1.025) POC Urine Protein Conf (Negative) Urine Ketones (NEGATIVE) Urine Nitrite (NEGATIVE) Urine Bilirubin (NEGATIVE) Urine Urobilinogen (0-1) mg/dL Urine Leukocytes (NEGATIVE) Urine WBC (Auto) (0-5) /HPF Urine RBC (Auto) (0-2) /HPF U Epithel Cells (Auto) (FEW) /HPF Urine Bacteria (Auto) (NEGATIVE) /HPF Urine RBC (0-5) Luis/ul Urine Mucus (Auto) (NEGATIVE) /HPF Ur Culture Indicated? Urine Glucose (NEGATIVE) mg/dL - Progress Progress: improved Progress Note: 02/15/22 08:53 With the patient laying flat this swelling in her bilateral lower extremities below the knee have visibly improved Counseled pt/family regarding: lab results, diagnosis, need for follow-up - Departure Departure Disposition: Home Clinical Impression: Bilateral lower extremity edema, UTI (urinary tract infection) Condition: Stable Critical Care Time: No Referrals: BELKIS WAGONER MD [Primary Care Provider] - Follow up/PCP as directed Additional Instructions: Take medication as prescribed. Follow-up with primary care physician next week for further evaluation management. When not ambulating or using wheelchair, make sure patient's bilateral lower extremities are elevated above the level of her heart. Prescriptions: Potassium Chloride Tab* [Klor Con] 10 meq PO DAILY #5 tab Furosemide 20 mg [Lasix 20 mg] 20 mg PO BID #6 tablet Levofloxacin [Levaquin 500 MG Tablet] 500 mg PO DAILY #7 tablet
[2022-02-15 07:24] LABS: Absolute Neutrophil Ct (ANC) 3.21 x10^3/uL (1.4-6.9); Basophil (Absolute #) 0.03 x10^3/uL (0-0.4); Hemoglobin 12.8 g/dL (12.0-16.0); Lymphocyte (Absolute #) 1.24 x10^3/uL (1.0-4.6); Lymphocytes % 24.3 % (24.0-44.0); Mean Cell Volume 104.6 fL (78-100); Mean Corpuscular Hemoglobin 34.3 pg (26-32); Mean Corpuscular Hgb Concent. 32.8 g/dL (32-36); Mean Platelet Volume 9.3 fL (7.5-11.0); Monocytes % 9.8 % (0.0-12.0); Neutrophil % 62.9 % (36.0-66.0); Platelet Count 409 x10^3/uL (150-450); Red Blood Count 3.73 x10^6/uL (4.1-5.4); Red Cell Distribution Width 12.4 % (11.5-14.0); White Blood Count 5.1 x10^3/uL (4.0-10.5)
[2022-02-15 07:35] LABS: Bacteria MODERATE /HPF (NEGATIVE); Epithelial Cells FEW /HPF (FEW); Mucus SLIGHT /HPF (NEGATIVE); WBC >100 /HPF (0-5)
[2022-02-15 07:36] LABS: Appearance CLEAR (CLEAR); Bilirubin NEGATIVE (NEGATIVE); Glucose NEGATIVE (NEGATIVE); Ketones NEGATIVE (NEGATIVE); Nitrite NEGATIVE (NEGATIVE); Protein,Urine Dip 30 (Negative); RBC SMALL Ery/ul (0-5); Specific Gravity 1.015 (1.005-1.025); Urine Cultured Indicated? YES; Urobilinogen NORMAL mg/dL (0-1)
[2022-02-15 07:45] LABS: Dipstick done @ ? MAIN LAB
[2022-02-15 08:15] LABS: ALKALINE PHOSPHATASE 76 U/L (38-126); ANION GAP 9.9 MEQ/L (5-15); BLOOD UREA NITROGEN 13 mg/dL (7-17); CHLORIDE 104 mmol/L (98-107); Calcium 9.3 mg/dL (8.4-10.2); Carbon Dioxide 29 mmol/L (22-30); Creatinine 1 0.63 mg/dL (0.52-1.04); EST GLOMERULAR FILTRATION RATE > 60.0 ML/MIN; Glucose 101 mg/dL (74-106); NT PRO BNP 147 pg/mL (0-1800); Potassium 3.9 mmol/L (3.5-5.1); SGOT/AST 33 U/L (14-36); SGPT/ALT 8 U/L (0-35); SODIUM 138 mmol/L (137-145); Total Protein 6.9 g/dL (6.3-8.2)
[2022-02-15] MEDS ORDERED: Lasix 40 MG/4 ML IV ONE (08:37)
[2022-02-15] MEDS ORDERED: ROCEPHIN 1 Gm-D5w 50 ml Bag** 1 G/50 ML IVPB IV STA (08:37)
[2022-02-15 08:43] VITALS: O2SAT 96
[2022-02-15] MEDS ORDERED: Levofloxacin 500 MG Tablet PO ONE (08:43)
[2022-02-15] MEDS ORDERED: Levofloxacin 500 MG Tablet ONE (08:46)
[2022-02-15] MEDS ORDERED: Lasix 40 MG/4 ML ONE (08:46)
[2022-02-15 09:00] VITALS: BP 166/80; PULSE 91
== END 2022-02-15 09:28 | disposition home or self-care (01) ==
LOC: ED 06:29
DX: R60.0 Localized edema (principal); N39.0 Urinary tract infection, site not specified; Z99.3 Dependence on wheelchair; Z79.899 Other long term (current) drug therapy
CPT/HCPCS: 36000; 36415; 80053; 81015; 83735; 83880; 85025; 85379; 87086; 93041; 94760; 96374; 99284; J1940; A9270-GY